=== PATIENT | male | born 1950 | race Caucasian/White ===

== ENCOUNTER 2022-02-09 13:13 | Emergency (ER) | payer MEDICARE, OTHER ==
[~2022-02-09] VITALS: Ht 157.5 cm; Wt 65.8 kg
[2022-02-09] MEDS ORDERED: LEVE1000 PO ×2 (13:26→15:50)
--- NOTE | 2022-02-09 13:29 | NUR ---
ADDENDUM: Intravenous End Time Documentation: Normal saline 1 liter (IV-WO) : start time: 1329 pm ; end time: 1429 pm : IV site:RAC PIV # 20 Port #1 Keppra 1 gram IVPB: start time: 1330 pm; end time: 1430 pm : IV site: RAC PIV # 20 Port # 2
[2022-02-09] MEDS ORDERED: IV NS 0.9% 1,000 ML BAG IV ONE (13:30)
[2022-02-09] MEDS ORDERED: LEVETIRACETAM (500MG) 500 MG in IV NS 0.9% 100 ML IV ONE (13:30)
[2022-02-09 13:44] LABS: BASOPHILS # (AUTO) 0.1 K/uL (0.0-0.2); BASOPHILS % (AUTO) 1.4 % (0.0-2.0); EOSINOPHILS % (AUTO) 4.2 % (0.0-6.0); HEMATOCRIT 37 % (39-51); LYMPHOCYTES # (AUTO) 1.4 K/uL (0.8-4.8); LYMPHOCYTES % (AUTO) 23.5 % (20.0-44.0); MEAN CORPUSCULAR HGB CONC 33 g/dl (31.0-36.0); MEAN CORPUSCULAR VOLUME 95 fL (80-96); MONOCYTES # (AUTO) 0.8 K/uL (0.1-1.30); MONOCYTES % (AUTO) 12.7 % (2.0-12.0); NEUTROPHILS # (AUTO) 3.5 K/uL (1.8-8.9); NEUTROPHILS % (AUTO) 58.2 % (43.0-81.0); PLATELET COUNT (AUTO) 318 K/uL (150-450); RED BLOOD CELL COUNT(AUTO) 3.85 MIL/uL (4.5-6.0); WHITE BLOOD COUNT (AUTO) 6.1 K/uL (4.3-11.0)
[2022-02-09 14:01] LABS: ALANINE AMINOTRANSFERASE 42 U/L (12-78); ALBUMIN 3.4 g/dL (3.4-5.0); ALCOHOL, BLOOD < 3 mg/dL (0-0); ALKALINE PHOSPHATASE 107 U/L (46-116); ASPARTATE AMINOTRANSFERASE 19 U/L (15-37); BILIRUBIN,DIRECT 0.1 mg/dL (0.0-0.2); BILIRUBIN,TOTAL 0.3 mg/dL (0.2-1.0); CALCIUM, SERUM 8.8 mg/dL (8.5-10.1); CARBON DIOXIDE 30 mmol/L (21-32); CHLORIDE 100 mmol/L (98-107); CREATININE 0.8 mg/dL (0.6-1.3); GLUCOSE 101 mg/dL (74-106); POTASSIUM 3.9 mmol/L (3.5-5.1); SODIUM SERUM 135 mmol/L (136-145); TOTAL PROTEIN, SERUM 7.2 g/dL (6.4-8.2); UREA NITROGEN, BLOOD 17 mg/dL (7-18)
--- NOTE | 2022-02-09 14:40 | NUR ---
IV STARTED AT 1330 PM AND ENDED AT 1430 PM
--- NOTE | 2022-02-09 15:17 | NUR ---
DOMINGO FROM [facility] FOR SEIZURE
--- NOTE | 2022-02-09 15:18 | NUR ---
IV R AC INTACT PATENT FLUSHING, NS AND KEPPRA GIVEN IV COMPLETED
--- NOTE | 2022-02-09 15:50 | NUR ---
[facility] [phone] [place] [facility] [id number]
--- NOTE | 2022-02-09 15:56 | NUR ---
[facility] CALLED FOR TRANSPORT ETA 20 MINS
[2022-02-09 16:50] VITALS: BP 118/72
[2022-02-23] MEDS ORDERED: LEVE100S PO (08:51)
[2022-02-23] MEDS ORDERED: LACO50TA2 PO (08:51)
[2022-02-23] MEDS ORDERED: LEVO500T90 PO (08:51)
== END 2022-02-09 16:52 | disposition home health service (06) ==
LOC: ER 14:54
DX: G40.909 Epilepsy, unspecified, not intractable, without status epilepticus (principal); Z91.14 Patient's other noncompliance with medication regimen
CPT/HCPCS: 99285; 96365; 93005; 71045; 70450; 85025; 80048; 80076; 36415; 82962; 80320; J7030; J1953; G0480

== ENCOUNTER 2022-02-12 10:56 | Emergency (ER) | payer MEDICARE, OTHER ==
[~2022-02-12] VITALS: Ht 147.3 cm; Wt 65.3 kg
[~2022-02-12 10:56] MED LIST: LEVE1000 PO
--- NOTE | 2022-02-12 10:59 | NUR ---
BIB RA 102 FROM [facility], HAS A SEIZURE EPISODE THAT LASTED 10 MINS, 2 DOSES OF 5 MG OF VERSED GIVEN BY CLINICAL NURSE LEADER. NO ORAL TRAUMA NOTED. ATTACHED TO MONITOR. SEIZURE PRECAUTION APPLIED. PT ARRIVED WITH IV ON R AC 20G BY PARAMEDICS. PT IS COMPLIANT WITH SEIZURE MEDICATION PER [facility] FACILTY. DR ALVARADO AT BEDSIDE, AWAITING AT BEDSIDE.
[2022-02-12 11:00] VITALS: BP 92/59
[2022-02-12] MEDS: IV NS 0.9% 1,000 ML BAG IV ONE (11:36)
[2022-02-12] MEDS: LEVETIRACETAM (500MG) 1,000 MG in IV NS 0.9% 100 ML IV SCH (11:38)
--- NOTE | 2022-02-12 12:51 | NUR ---
CALLED BOARDING FACILTY TO LET THEM KNOW THE PT JAX BE COMING BACK
--- NOTE | 2022-02-12 12:55 | NUR ---
[facility] CALLED, ETA 60 MIN PER SAMAN.
--- NOTE | 2022-02-12 13:49 | NUR ---
REPORT GIVEN TO [facility] EMT FOR ZHANE
[2022-02-23] MEDS ORDERED: LEVO500T90 PO (08:51)
[2022-02-23] MEDS ORDERED: LEVE100S PO (08:51)
[2022-02-23] MEDS ORDERED: LACO50TA2 PO (08:51)
--- NOTE | 2022-02-28 16:50 | NUR ---
ADDENDUM. IV KEPPRA STARTED ON 02/12/22 AT 1138 ON R AC 20G, KEPPRA COMPLETED AT 1208. PT TOLERATED IV MEDICATION WELL.
== END 2022-02-12 13:52 | disposition home or self-care (01) ==
LOC: ER 10:58
DX: G40.909 Epilepsy, unspecified, not intractable, without status epilepticus (principal); I69.30 Unspecified sequelae of cerebral infarction; F19.10 Other psychoactive substance abuse, uncomplicated; Z86.61 Personal history of infections of the central nervous system
CPT/HCPCS: 99284; 96365; J7030 ×3; J1953

== ENCOUNTER 2022-02-13 11:02 | Inpatient (IN) | payer MEDICARE, OTHER ==
[~2022-02-13] VITALS: Ht 165.1 cm; Wt 61.7 kg
[2022-02-13] MEDS ORDERED: LEVETIRACETAM (500MG) 1,000 MG in IV NS 0.9% 100 ML IV SCH (11:30)
[2022-02-13] MEDS ORDERED: IV NS 0.9% 1,000 ML BAG IV ONE (11:30)
--- NOTE | 2022-02-13 11:41 | NUR ---
URINE COLLECTED AND SENT TO LAB
--- NOTE | 2022-02-13 11:43 | NUR ---
HAT FORMER AT BEDSIDE FOR BLOOD DRAW
[2022-02-13 11:57] LABS: BASOPHILS # (AUTO) 0.1 K/uL (0.0-0.2); BASOPHILS % (AUTO) 0.8 % (0.0-2.0); EOSINOPHILS % (AUTO) 1.3 % (0.0-6.0); HEMATOCRIT 39 % (39-51); HEMOGLOBIN 12.8 g/dL (13.5-17.5); LYMPHOCYTES # (AUTO) 0.7 K/uL (0.8-4.8); LYMPHOCYTES % (AUTO) 7.8 % (20.0-44.0); MEAN CORPUSCULAR HGB CONC 33 g/dl (31.0-36.0); MEAN CORPUSCULAR VOLUME 95 fL (80-96); MONOCYTES # (AUTO) 0.8 K/uL (0.1-1.30); MONOCYTES % (AUTO) 9.8 % (2.0-12.0); NEUTROPHILS # (AUTO) 6.8 K/uL (1.8-8.9); NEUTROPHILS % (AUTO) 80.3 % (43.0-81.0); PLATELET COUNT (AUTO) 287 K/uL (150-450); RED BLOOD CELL COUNT(AUTO) 4.12 MIL/uL (4.5-6.0); WHITE BLOOD COUNT (AUTO) 8.4 K/uL (4.3-11.0)
[2022-02-13 12:04] LABS: CALCIUM, SERUM 8.5 mg/dL (8.5-10.1); CARBON DIOXIDE 29 mmol/L (21-32); CHLORIDE 103 mmol/L (98-107); CREATININE 0.7 mg/dL (0.6-1.3); GLUCOSE 106 mg/dL (74-106); POTASSIUM 3.9 mmol/L (3.5-5.1); SODIUM SERUM 136 mmol/L (136-145); UREA NITROGEN, BLOOD 9 mg/dL (7-18)
[2022-02-13 12:10] LABS: ALANINE AMINOTRANSFERASE 35 U/L (12-78); ALBUMIN 3.4 g/dL (3.4-5.0); ALCOHOL, BLOOD < 3 mg/dL (0-0); ALKALINE PHOSPHATASE 120 U/L (46-116); ASPARTATE AMINOTRANSFERASE 21 U/L (15-37); BILIRUBIN,DIRECT 0.1 mg/dL (0.0-0.2); BILIRUBIN,TOTAL 0.4 mg/dL (0.2-1.0); TOTAL PROTEIN, SERUM 7.2 g/dL (6.4-8.2)
--- NOTE | 2022-02-13 15:25 | NUR ---
CALLED [facility] FOR BLS AMBULANCE ETA 90 MINUTES
--- NOTE | 2022-02-13 18:16 | NUR ---
EMT AT BEDSIDE TO PICKUP PT
[2022-02-13] MEDS ORDERED: IV NS 0.9% 1,000 ML IV ONE (19:00)
--- NOTE | 2022-02-13 19:13 | NUR ---
LUCÍA QIU 102 from [facility] "Witnessed seizure- full tonic/clonic given 10MG VERSED BY EMS AESTHETICIAN AND SEIZURE RESOLVED. PT CURRENTLY AWAKE AND ALERT IN NO ACUTE DISTRESS BREATHING UNLABORED. V/S WNL.
--- NOTE | 2022-02-13 20:25 | NUR ---
[facility] CALLED FOR BLS GOING BACK TO [facility] PER RENU TOLBERT 90 MIN
[2022-02-13] MEDS ORDERED: ACETAMINOPHEN ES 500 MG TABLET PO ONE (20:30)
[2022-02-13] MEDS ORDERED: ACETAMINOPHEN ES 500 MG TABLET ONE (20:30)
--- NOTE | 2022-02-13 21:57 | NUR ---
jenniffer collected and sent to lab
[2022-02-13] MEDS ORDERED: Z GUARD REMEDY 4 OZ OINT TP PRN (23:00)
[2022-02-13] MEDS ORDERED: MAG HYDROX/AL HYDROX/SIMETH 30 ML UDC PO PRN (23:00)
[2022-02-13] MEDS ORDERED: ZOLPIDEM TARTRATE 5 MG TABLET PO PRN (23:00)
[2022-02-13] MEDS ORDERED: ONDANSETRON HCL/PF 4 MG/2 ML VIAL IVP PRN (23:00)
[2022-02-13] MEDS ORDERED: MAGNESIUM HYDROXIDE 30 ML UDC PO PRN (23:00)
--- NOTE | 2022-02-14 02:25 | NUR ---
REPORT GIVEN TO LIZZIE
--- NOTE | 2022-02-14 02:39 | NUR ---
PT TRANSPORTED TO ROOM 114 ON CARDIAC PER ACLS
--- NOTE | 2022-02-14 02:47 | NUR ---
HEAD FIELD HOCKEY COACH OPENING NOTE RECEIVED PATIENT VIA HARINIRBETINA FROM ED. PATIENT A/OX3, SLIGHTLY OUT OF IT. ON 2L O2 VIA NC, TOLERATING WELL WITH SATURATION 99%. TELE MONITOR READING SR 93, IV ACCESS ON LAC #20G FROM EMT, ANOTHER IV PLACED LFA #20, BOTH INTACT AND PATENT, S/L. SKIN IN INTACT WITH SACRAL REDNESS, EYE LEFT SIDE. PICTURES IN THE CHART. ALL SAFETY MEASURES IN PLACE PER POLICY, WILL CONTINUE TO MONITOR THROUGHOUT SHIFT. Addendum: 02/14/22 at 0428 by LIZZIE OLIVA RN BOTH IV ON R SIDE NOT LEFT.
[2022-02-14 02:50] VITALS: BP 95/72
[2022-02-14 04:00] VITALS: BP 104/64
[2022-02-14] MEDS: IV NS 0.9% 1,000 ML IV PRN ×2 (04:36→19:57)
--- NOTE | 2022-02-14 06:47 | NUR ---
GUARDIAN AD LITEM CLOSING NOTE PATIENT A/OX3, SLIGHTLY OUT OF IT. ON 2L O2 VIA NC, TOLERATING WELL WITH SATURATION 99%. TELE MONITOR READING SR 91, IV ACCESS ON RAC #20G AND RFA #20, BOTH INTACT AND PATENT, RUNNING NS @75ML/HR. VSS. ALL DUE MEDS GIVEN. ALL SAFETY MEASURES IN PLACE. BED IN LOWEST POSITION AND LOCKED, SIDE RAILS UP X3. PLACE CALL LIGHT WITHIN REACH. WILL ENDORSE TO MORNING
[2022-02-14 07:02] LABS: BASOPHILS % (AUTO) 0.1 % (0.0-2.0); HEMATOCRIT 31 % (39-51); HEMOGLOBIN 10.4 g/dL (13.5-17.5); LYMPHOCYTES # (AUTO) 0.9 K/uL (0.8-4.8); LYMPHOCYTES % (AUTO) 4.4 % (20.0-44.0); MEAN CORPUSCULAR HGB CONC 33 g/dl (31.0-36.0); MEAN CORPUSCULAR VOLUME 93 fL (80-96); MONOCYTES # (AUTO) 1.8 K/uL (0.1-1.30); MONOCYTES % (AUTO) 8.7 % (2.0-12.0); NEUTROPHILS # (AUTO) 17.9 K/uL (1.8-8.9); NEUTROPHILS % (AUTO) 86.8 % (43.0-81.0); PLATELET COUNT (AUTO) 211 K/uL (150-450); RED BLOOD CELL COUNT(AUTO) 3.36 MIL/uL (4.5-6.0); WHITE BLOOD COUNT (AUTO) 20.6 K/uL (4.3-11.0)
--- NOTE | 2022-02-14 07:14 | NUR ---
DIP FILLER OPENING NOTE PATIENT IS IN BED A/OX3, ON 2L O2 VIA NC, TOLERATING WELL WITH SATURATION 99%. TELE MONITOR READING SR 87, IV ACCESS ON LAC #20G FROM EMT, ANOTHER IV PLACED LFA #20, BOTH INTACT AND PATENT NS RUNNING AT 75 ML/HR , SKIN IN INTACT WITH SACRAL REDNESS, LEFT EYE CALIXTO S/P FALL PER PATIENT STATEMENT ALL SAFETY MEASURES IN PLACE PER POLICY, WILL CONTINUE TO MONITOR THROUGHOUT THE SHIFT.
[2022-02-14 08:00] VITALS: BP 107/67
[2022-02-14] MEDS: ASPIRIN 81 MG TAB.CHEW PO SCH (08:04)
[2022-02-14] MEDS: LEVETIRACETAM (250 MG) 250 MG TABLET PO SCH ×2 (08:05→20:19)
[2022-02-14 08:19] LABS: CALCIUM, SERUM 8.4 mg/dL (8.5-10.1); CREATININE 0.9 mg/dL (0.6-1.3); MAGNESIUM 1.5 mg/dL (1.8-2.4); PHOSPHORUS 4.1 mg/dL (2.5-4.9); POTASSIUM 3.8 mmol/L (3.5-5.1)
[2022-02-14] MEDS ORDERED: LEVETIRACETAM (250 MG) 250 MG TABLET PO SCH (09:00)
[2022-02-14] MEDS: Magnesium 1GM/D5W 100ML PREMIX 100 ML IV SCH ×2 (09:11→10:32)
[2022-02-14] MEDS: ACETAMINOPHEN 325 MG TABLET PO PRN ×2 (09:17→19:59)
[2022-02-14] MEDS: LORAZEPAM INJ 2 MG/ML VIAL IV PRN ×2 (09:25→18:23)
[2022-02-14 12:00] VITALS: BP 94/70
[2022-02-14 12:23] LABS: BILIRUBIN,URINE NEGATIVE (NEGATIVE); COLOR,URINE BROWN (YELLOW); LEUKOCYTE ESTERASE ,URINE TRACE (NEGATIVE); NITRITE, URINE POSITIVE (NEGATIVE); PROTEIN,URINE >=300 mg/dl (NEGATIVE); UGLUCOSE 100 MG/DL mg/dL (NEGATIVE)
[2022-02-14 12:30] LABS: BACTERIA,URINE Many /HPF (None Seen); RBC,URINE TOO NUMEROUS TO COUN /HPF (0-2); SQUAMOUS EPITHELIAL CELL,UR Rare /HPF (None Seen)
[2022-02-14 17:57] VITALS: BP 103/60
--- NOTE | 2022-02-14 18:23 | NUR ---
UNIFIED COMMUNICATIONS ENGINEER NOTES NOTIFIED BARI DEJESUS NP ABOUT PATIENT HAD SVT WITH HR 162 FOR 3 MINUTES. THEN BACK TO 131.
--- NOTE | 2022-02-14 18:48 | NUR ---
NEUROLOGICAL SURGEON CLOSING NOTE PATIENT IS IN BED A/OX3, ON 2L O2 VIA NC, TOLERATING WELL WITH SATURATION 99%. TELE MONITOR READING SR 105 , IV ACCESS ON LAC #22 G , NS RUNNING AT 75 ML/HR , PATIENT HAS TWO SEIZURES EPISODES TODAY DOCTOR GLO Jovel IN INTACT WITH SACRAL REDNESS, LEFT EYE CALIXTO S/P FALL PER PATIENT STATEMENT ALL SAFETY MEASURES IN PLACE PER POLICY, WILL CONTINUE TO MONITOR THROUGHOUT THE SHIFT. Addendum: 02/14/22 at 1851 by LUCHO MONDRAGON RN DR ERIS SALAZAR WAS NOTIFIED , ORDEREDEEG FOR TOMORROW
--- NOTE | 2022-02-14 19:30 | NUR ---
MOLD PRESSER OPENING NOTE PATIENT IS IN BED, AWAKE, A/OX3, ABLE TO MAKE NEEDS KNOWN. CURRENTLY ON 2L O2 VIA NC, TOLERATING WELL WITH SATURATION AT 99%. TELE MONITOR READS ST WITH HR>100. NO S/SX OF ACUTE RESPI DISTRESS NOTED AT THIS TIME. NO SOB, NO PAIN. IV ACCESS ON LFA #20G, INTACT AND PATENT, RUNNING NS AT 75 ML/HR. LEFT EYE BRUISE NOTED, S/P FALL PER PATIENT STATEMENT. ALL SAFETY MEASURES IN PLACE PER POLICY: BED LOCKED IN LOW POSITION, BED ALARM ON, SR UP X2, CALL LIGHT WITHIN REACH. WILL CONTINUE TO MONITOR THROUGHOUT THE SHIFT.
[2022-02-14 20:00] VITALS: BP 138/85
--- NOTE | 2022-02-14 20:00 | NUR ---
RN NOTE RELAYED INFO TO SKILLED HELPER DOCTOR, SANJAY SPAIN, REGARDING PT'S SVT EPISODE BETWEEN 18:33-18:36 TODAY. EKG RESULT WAS SENT TO HER WELL. CURRENT HR 124, BP 134/78. SHE MADE ONE TIME ORDER OF METOPROLOL 5 MG IV X1. WILL FOLLOW THROUGH.
[2022-02-14] MEDS ORDERED: METOPROLOL TARTRATE INJ 5 MG/5 ML AMPUL IVP ONE (20:30)
[2022-02-14] MEDS: ZOSYN IVPB 3.375 G in IV D5W 50ml IV SCH (23:56)
[2022-02-15] VITALS: BP 127/82
[2022-02-15 04:00] VITALS: BP 125/82
[2022-02-15] MEDS: ZOSYN IVPB 3.375 G in IV D5W 50ml IV SCH ×4 (05:06→23:19)
--- NOTE | 2022-02-15 06:25 | NUR ---
RN CLOSING NOTE PT REMAINED STABLE T/O THE NIGHT. CURRENTLY SR ON TELE MONITOR, HR IN THE 80s. ALL VS WNL. DUE MEDS GIVEN. NEEDS ATTENDED TO. TURNED AND REPOSITIONED. WILL ENDORSE TO AM SHIFT NURSE FOR ZHANE.
[2022-02-15 06:40] LABS: BASOPHILS % (AUTO) 0.2 % (0.0-2.0); EOSINOPHILS % (AUTO) 0.4 % (0.0-6.0); HEMATOCRIT 30 % (39-51); HEMOGLOBIN 10.2 g/dL (13.5-17.5); LYMPHOCYTES # (AUTO) 0.8 K/uL (0.8-4.8); LYMPHOCYTES % (AUTO) 5.8 % (20.0-44.0); MEAN CORPUSCULAR HGB CONC 34 g/dl (31.0-36.0); MEAN CORPUSCULAR VOLUME 93 fL (80-96); MONOCYTES # (AUTO) 1.4 K/uL (0.1-1.30); MONOCYTES % (AUTO) 9.4 % (2.0-12.0); NEUTROPHILS # (AUTO) 12.1 K/uL (1.8-8.9); NEUTROPHILS % (AUTO) 84.2 % (43.0-81.0); PLATELET COUNT (AUTO) 163 K/uL (150-450); RED BLOOD CELL COUNT(AUTO) 3.26 MIL/uL (4.5-6.0); WHITE BLOOD COUNT (AUTO) 14.4 K/uL (4.3-11.0)
[2022-02-15 06:42] LABS: CALCIUM, SERUM 8.5 mg/dL (8.5-10.1); CARBON DIOXIDE 27 mmol/L (21-32); CHLORIDE 106 mmol/L (98-107); CREATININE 0.7 mg/dL (0.6-1.3); GLUCOSE 112 mg/dL (74-106); MAGNESIUM 1.8 mg/dL (1.8-2.4); PHOSPHORUS 2.2 mg/dL (2.5-4.9); POTASSIUM 3.2 mmol/L (3.5-5.1); SODIUM SERUM 140 mmol/L (136-145); UREA NITROGEN, BLOOD 15 mg/dL (7-18)
--- NOTE | 2022-02-15 07:47 | NUR ---
RN OPEN NOTE PATIENT IS IN BED A/OX3, ON 2L O2 VIA NC, TOLERATING WELL WITH SATURATION 99%. TELE MONITOR READING SR 85, IV ACCESS LEFT FOREARM 22 G INTACT AND PATENT NS RUNNING AT 75 ML/HR , SKIN IN INTACT WITH SACRAL REDNESS, LEFT EYE CALIXTO S/P FALL PER PATIENT STATEMENT ALL SAFETY MEASURES IN PLACE PER POLICY, WILL CONTINUE TO MONITOR THROUGHOUT THE SHIFT.
[2022-02-15 08:00] VITALS: BP 129/72
[2022-02-15] MEDS: ASPIRIN 81 MG TAB.CHEW PO SCH (08:39)
[2022-02-15] MEDS: LEVETIRACETAM (250 MG) 250 MG TABLET PO SCH ×2 (08:39→20:20)
--- NOTE | 2022-02-15 10:30 | NUR ---
RN NOTE DR GRANT , NEUROLOGIST , WAS AT THE BED SIDE , ASKED WHEN SON WILL BE VISITING PATIENT TO CALL HIM [phone]
[2022-02-15] MEDS: LORAZEPAM INJ 2 MG/ML VIAL IV PRN ×2 (11:54→19:48)
[2022-02-15 12:00] VITALS: BP 137/81
[2022-02-15] MEDS: IV NS 0.9% 1,000 ML IV PRN (12:04)
[2022-02-15] MEDS ORDERED: K PHOS NEUTRAL 250 MG TABLET PO ONE (13:00)
[2022-02-15] MEDS ORDERED: POTASSIUM CHLORIDE 20 MEQ TAB.PRT.SR PO SCH ×2 (13:00)
[2022-02-15] MEDS ORDERED: LACOSAMIDE 200 MG in IV NS 0.9% 100 ML IV ONE (14:00)
[2022-02-15 17:08] VITALS: BP 143/76
--- NOTE | 2022-02-15 18:48 | NUR ---
RN CLOSE NOTE PATIENT IS IN BED A/OX3, ON 2L O2 VIA NC, TOLERATING WELL WITH SATURATION 99%. TELE MONITOR READING SR 85, IV ACCESS LEFT FOREARM 22 G INTACT AND PATENT NS RUNNING AT 75 ML/HR , SKIN IN INTACT WITH SACRAL REDNESS, LEFT EYE CALIXTO S/P FALL PER PATIENT STATEMENT ALL SAFETY MEASURES IN PLACE PER POLICY, WILL ENDORSE CORE JAVA SOFTWARE ENGINEER NURSE TO CONTINUE TO FALLOW POC.
--- NOTE | 2022-02-15 19:30 | NUR ---
APPLIANCE TESTER OPENING NOTE RECEIVED REPORT FROM QUAN YEPEZ FOR ZHANE. PATIENT IN BED, AWAKE, A/OX3, ABLE TO MAKE NEEDS KNOWN. CURRENTLY ON 2L O2 VIA NC, TOLERATING WELL WITH SATURATION AT 95%. TELE MONITOR READS SR WITH HR IN THE 80s. NO S/SX OF ACUTE RESPI DISTRESS NOTED AT THIS TIME. NO SOB, NO PAIN. IV ACCESS ON LFA #20G, INTACT AND PATENT, RUNNING NS AT 100 ML/HR. LEFT EYE BRUISE NOTED, S/P FALL PER PATIENT STATEMENT. ALL SAFETY MEASURES IN PLACE PER POLICY: BED LOCKED IN LOW POSITION, BED ALARM ON, SR UP X2, CALL LIGHT WITHIN REACH. WILL CONTINUE TO MONITOR THROUGHOUT THE SHIFT.
[2022-02-15 20:00] VITALS: BP 140/84
[2022-02-15] MEDS: LACOSAMIDE 100 MG in IV NS 0.9% 50 ML IV SCH (20:20)
--- NOTE | 2022-02-15 21:20 | NUR ---
RN NOTE YANETH CATHETER INSERTED.
[2022-02-16] VITALS: BP 133/81
[2022-02-16 04:00] VITALS: BP 130/67
[2022-02-16] MEDS: LORAZEPAM INJ 2 MG/ML VIAL IV PRN ×3 (04:07→19:38)
--- NOTE | 2022-02-16 04:40 | NUR ---
RN NOTE RECEIVED LAB REPORT FOR PT'S BLOOD CULTURE: GRAM NEGATIVE RODS DETECTED.
[2022-02-16] MEDS: ZOSYN IVPB 3.375 G in IV D5W 50ml IV SCH (06:23)
--- NOTE | 2022-02-16 06:26 | NUR ---
RN CLOSING NOTE PT REMAINED STABLE WITH NO SIGNIFICANT CHANGES T/O THE NIGHT. PT IS CURRENTLY SR WITH HR IN THE 80s. PT DENIES ANY PAIN. BREATHING IS EVEN AND UNLABORED. HAD 2 EPISODES OF MILD SEIZURE THE WHOLE NIGHT. GAVE ATIVAN ORDERED. MAINTAINED PT'S SAFETY. VS STABLE. WILL ENDORSE TO AM SHIFT NURSE FOR ZHANE.
[2022-02-16 06:56] LABS: BASOPHILS # (AUTO) 0.1 K/uL (0.0-0.2); BASOPHILS % (AUTO) 0.5 % (0.0-2.0); EOSINOPHILS % (AUTO) 0.9 % (0.0-6.0); HEMATOCRIT 30 % (39-51); HEMOGLOBIN 10.3 g/dL (13.5-17.5); LYMPHOCYTES # (AUTO) 1.1 K/uL (0.8-4.8); LYMPHOCYTES % (AUTO) 8.5 % (20.0-44.0); MEAN CORPUSCULAR HGB CONC 34 g/dl (31.0-36.0); MEAN CORPUSCULAR VOLUME 93 fL (80-96); MONOCYTES # (AUTO) 1.4 K/uL (0.1-1.30); MONOCYTES % (AUTO) 10.9 % (2.0-12.0); NEUTROPHILS # (AUTO) 10.1 K/uL (1.8-8.9); NEUTROPHILS % (AUTO) 79.2 % (43.0-81.0); PLATELET COUNT (AUTO) 169 K/uL (150-450); RED BLOOD CELL COUNT(AUTO) 3.28 MIL/uL (4.5-6.0); WHITE BLOOD COUNT (AUTO) 12.8 K/uL (4.3-11.0)
[2022-02-16 07:24] LABS: CALCIUM, SERUM 8.7 mg/dL (8.5-10.1); CREATININE 0.7 mg/dL (0.6-1.3); MAGNESIUM 1.7 mg/dL (1.8-2.4); PHOSPHORUS 2.9 mg/dL (2.5-4.9); POTASSIUM 3.6 mmol/L (3.5-5.1)
--- NOTE | 2022-02-16 07:34 | NUR ---
RN OPENING NOTE PATIENT IN BED ON 2 LITERS OXYGEN VIA NASAL CANULA, OXYGEN SATURATION AT 100%. ON PLUMBING AND HEATING MECHANIC READING SINUS RHYTHM WITH HEART RATE IN THE 80s. IV ACCESS ON LEFT FOREARM [address] GAUGE[address] SAFETY MEASURES IN PLACE. BED RAILS PADDED TO PREVENT INJURY DURING SEIZURES. WILL CONTINUE PLAN OF CARE AND ANTICIPATE NEEDS.
[2022-02-16 08:00] VITALS: BP 124/72
[2022-02-16] MEDS: LEVETIRACETAM (250 MG) 250 MG TABLET PO SCH ×2 (08:52→21:04)
[2022-02-16] MEDS: ASPIRIN 81 MG TAB.CHEW PO SCH (08:52)
[2022-02-16] MEDS: LACOSAMIDE 100 MG in IV NS 0.9% 50 ML IV SCH (08:57)
[2022-02-16] MEDS: Magnesium 1GM/D5W 100ML PREMIX 100 ML IV SCH ×2 (11:35→12:36)
[2022-02-16 12:00] VITALS: BP 159/94
[2022-02-16] MEDS ORDERED: PIPERACILLIN /TAZOBACTAM 3.375 G in IV D5W 100 ML IV SCH (13:00)
[2022-02-16] MEDS: CEFEPIME 2 GM in IV D5W 100 ML IV SCH ×2 (13:59→21:10)
[2022-02-16 16:00] VITALS: BP 140/85
[2022-02-16] MEDS: IV NS 0.9% 1,000 ML IV PRN (18:10)
--- NOTE | 2022-02-16 18:31 | NUR ---
RN CLOSING NOTE PATIENT IN BED ON 2 LITERS OXYGEN VIA NASAL CANULA, OXYGEN SATURATION AT 100%. ON APPLIANCE TESTER READING SINUS RHYTHM. IV ACCESS ON LEFT FOREARM [address] GAUGE. SAFETY MEASURES IN PLACE. BED RAILS PADDED TO PREVENT INJURY DURING SEIZURES. ALL DUE MEDS GIVEN. WILL ENDORSE TO NIGHTSHIFT RN FOR CONTINUATION OF CARE.
--- NOTE | 2022-02-16 19:15 | NUR ---
CAR PRE COOLER OPENING NOTE RECEIVED REPORT FROM QUAN KENNEY FOR [facility]. PATIENT IN BED, SLEEPING, CURRENTLY ON 2 LITERS OF OXYGEN VIA NASAL CANNULA, TOLERATING WELL. OXYGEN SATURATION AT 100%. ON INCOME AUDITOR READING SINUS RHYTHM WITH HEART RATE <100. NO S/SX OF ACUTE RESPI DISTRESS NOTED AT THIS TIME. IV ACCESS ON LEFT FOREARM 20 GAUGE, PATENT AND INTACT, RUNNING NS @ 100 CC/HR. ALL SAFETY MEASURES IN PLACE: BED LOCKED IN LOW POSITION. BED ALARM ON. BED RAILS PADDED TO PREVENT INJURY DURING SEIZURES. CALL LIGHT WITHIN REACH. WILL CONTINUE PLAN OF CARE AND ANTICIPATE NEEDS.
--- NOTE | 2022-02-16 19:47 | NUR ---
RN NOTE PT SHOWING FACIAL GRIMACE AFTER HAVING MILD EPISODE OF SEIZURE. MAINTAINED PT'S SAFETY. GAVE ATIVAN PRN ORDERED. WILL CONTINUE TO MONITOR.
[2022-02-16 20:00] VITALS: BP 151/94
[2022-02-16] MEDS: LACOSAMIDE ORAL SOLN 50 MG/5 ML UDC PO SCH (21:05)
[2022-02-17] VITALS: BP 117/74
[2022-02-17] MEDS: LORAZEPAM INJ 2 MG/ML VIAL IV PRN ×3 (00:06→19:59)
[2022-02-17] MEDS: ACETAMINOPHEN 325 MG TABLET PO PRN ×2 (02:07→05:26)
[2022-02-17 04:00] VITALS: BP 151/74
[2022-02-17] MEDS: CEFEPIME 2 GM in IV D5W 100 ML IV SCH ×3 (05:08→22:19)
[2022-02-17] MEDS: IV NS 0.9% 1,000 ML IV PRN ×2 (05:16→19:18)
--- NOTE | 2022-02-17 06:31 | NUR ---
RN CLOSING NOTE PT HAD A COUPLE OF MILD SEIZURE EPISODES WHICH LASTED FOR A FEW MINUTES. ATIVAN PRN GIVEN ORDERED. MAINTAINED PT'S SAFETY. ALL DUE MEDS GIVENS. NEEDS ATTENDED TO. TURNED AND REPOSITIONED. PT CURRENTLY SR ON TELE MONITOR WITH O2 SAT AT 100%. ALL SAFETY MEASURES IN PLACE. WILL ENDORSE TO AM SHIFT NURSE FOR ZHANE.
--- NOTE | 2022-02-17 07:00 | NUR ---
AIR ANALYSIS ENGINEERING TECHNICIAN OPENING NOTE: RECEIVED PATIENT IN BED, SLEEPING, CURRENTLY ON 2 LITERS OF OXYGEN VIA NASAL CANNULA, TOLERATING WELL. OXYGEN SATURATION AT 100%. ON GREASE AND TALLOW PUMPER READING SINUS RHYTHM WITH HEART RATE <100. NO S/SX OF ACUTE RESPI DISTRESS NOTED AT THIS TIME. IV ACCESS ON LEFT FOREARM 20 GAUGE, PATENT AND INTACT, RUNNING NS @ 100 CC/HR. ALL SAFETY MEASURES IN PLACE: BED LOCKED IN LOW POSITION. BED ALARM ON. BED RAILS PADDED TO PREVENT INJURY DURING SEIZURES. CALL LIGHT WITHIN REACH. WILL CONTINUE PLAN OF CARE AND ANTICIPATE NEEDS.
[2022-02-17 07:33] LABS: BASOPHILS # (AUTO) 0.1 K/uL (0.0-0.2); BASOPHILS % (AUTO) 1.2 % (0.0-2.0); EOSINOPHILS % (AUTO) 4.5 % (0.0-6.0); HEMATOCRIT 31 % (39-51); HEMOGLOBIN 10.3 g/dL (13.5-17.5); LYMPHOCYTES # (AUTO) 1.1 K/uL (0.8-4.8); LYMPHOCYTES % (AUTO) 18.8 % (20.0-44.0); MEAN CORPUSCULAR HGB CONC 34 g/dl (31.0-36.0); MEAN CORPUSCULAR VOLUME 93 fL (80-96); MONOCYTES # (AUTO) 1.1 K/uL (0.1-1.30); MONOCYTES % (AUTO) 19.4 % (2.0-12.0); NEUTROPHILS # (AUTO) 3.2 K/uL (1.8-8.9); NEUTROPHILS % (AUTO) 56.1 % (43.0-81.0); PLATELET COUNT (AUTO) 188 K/uL (150-450); RED BLOOD CELL COUNT(AUTO) 3.29 MIL/uL (4.5-6.0); WHITE BLOOD COUNT (AUTO) 5.7 K/uL (4.3-11.0)
[2022-02-17 07:53] LABS: CALCIUM, SERUM 8.7 mg/dL (8.5-10.1); CARBON DIOXIDE 28 mmol/L (21-32); CHLORIDE 104 mmol/L (98-107); CREATININE 0.7 mg/dL (0.6-1.3); GLUCOSE 89 mg/dL (74-106); MAGNESIUM 1.9 mg/dL (1.8-2.4); PHOSPHORUS 3.4 mg/dL (2.5-4.9); POTASSIUM 3.4 mmol/L (3.5-5.1); SODIUM SERUM 137 mmol/L (136-145); UREA NITROGEN, BLOOD 10 mg/dL (7-18)
[2022-02-17 08:00] VITALS: BP 111/71
[2022-02-17] MEDS: ASPIRIN 81 MG TAB.CHEW PO SCH (08:15)
[2022-02-17] MEDS: LACOSAMIDE ORAL SOLN 50 MG/5 ML UDC PO SCH ×2 (08:15→20:15)
[2022-02-17] MEDS: LEVETIRACETAM (250 MG) 250 MG TABLET PO SCH ×2 (08:16→20:15)
[2022-02-17 09:02] LABS: BASOPHILS % (MANUAL) 1 % (0.0-2.0); EOSINOPHILS % (MANUAL) 3 % (0-4); LYMPHOCYTES % (MANUAL) 21 % (16-48); MONOCYTES % (MANUAL) 12 % (0-11.0); NEUTROPHILS % (MANUAL) 63 (42-76)
[2022-02-17] MEDS ORDERED: POTASSIUM CHLORIDE 20 MEQ TAB.PRT.SR PO SCH (10:00)
--- NOTE | 2022-02-17 11:17 | NUR ---
rn notes" noted pt with seizure ativan IV given, maintained seizure precaution
[2022-02-17 12:00] VITALS: BP 142/93
[2022-02-17 16:00] VITALS: BP 144/88
--- NOTE | 2022-02-17 19:28 | NUR ---
television cameraman CLOSING NOTE PT HAD SEIZURE EPISODES WHICH LASTED FOR A FEW MINUTES. ATIVAN PRN GIVEN ORDERED. MAINTAINED PT'S SAFETY.ALL DUE MEDS GIVENS. NEEDS ATTENDED TO. TURNED AND REPOSITIONED. PT CURRENTLY SR ON TELE MONITOR WITH O2 SAT AT 100%. ALL SAFETY MEASURES IN PLACE. WILL ENDORSE TO AM SHIFT NURSE FOR ZHANE.noted pt is shaking when asked how do you feel pt says i have seizure, will monitor
--- NOTE | 2022-02-17 19:30 | NUR ---
PT RECEIVED AWAKE IN BED, ON 2 LITERS OF OXYGEN VIA NASAL CANNULA, TOLERATING WELL. OXYGEN SATURATION AT 99%. ON ANTHROPOMETRIST READING SINUS RHYTHM WITH HEART RATE <100. NO S/SX OF ACUTE RESPI DISTRESS NOTED AT THIS TIME. IV ACCESS ON LEFT FOREARM 20 GAUGE, PATENT AND INTACT, INFUSING NS @ 100 CC/HR. ALL SAFETY MEASURES IN PLACE: BED LOCKED IN LOW POSITION. BED ALARM ON. BED RAILS PADDED TO PREVENT INJURY DURING SEIZURES. CALL LIGHT WITHIN REACH. WILL CONTINUE PLAN OF CARE AND ANTICIPATE NEEDS.
[2022-02-17 20:00] VITALS: BP 143/99
[2022-02-18] VITALS: BP 157/98
[2022-02-18 04:00] VITALS: BP 128/85
[2022-02-18] MEDS: IV NS 0.9% 1,000 ML IV PRN ×2 (06:30→18:12)
[2022-02-18] MEDS: CEFEPIME 2 GM in IV D5W 100 ML IV SCH ×3 (06:36→21:45)
--- NOTE | 2022-02-18 07:36 | NUR ---
PT AWAKE IN BED, ON 2 LITERS OF OXYGEN VIA NASAL CANNULA, TOLERATING WELL. OXYGEN SATURATION AT 99%. ON TOP COATER READING SINUS RHYTHM WITH HEART RATE <100. NO S/SX OF ACUTE RESPI DISTRESS NOTED AT THIS TIME. IV ACCESS ON LEFT FOREARM 20 GAUGE, PATENT AND INTACT, INFUSING NS @ 100 CC/HR. ALL SAFETY MEASURES MAINTAINED, BED LOCKED IN LOW POSITION. BED ALARM ON. BED RAILS PADDED TO PREVENT INJURY DURING SEIZURES. CALL LIGHT WITHIN REACH. WILL ENDORSE TO NEXT NURSE ON DUTY FOR CONTINUITY OF CARE.
--- NOTE | 2022-02-18 07:47 | NUR ---
telesales team leader note patient in bed alert oriented, c\o is wet diaper changed, on 2l nc no sob noted at this time, on tele monitor st hr 117 at this time, lt fa hl intact and flushed well , on ivf as ordered seizure precaution in place , safety measure provided, call light within reach will cont to monitor closely
[2022-02-18 08:00] VITALS: BP 160/94
--- NOTE | 2022-02-18 08:30 | NUR ---
NATURAL RESOURCES TECHNICIAN NOTE SEEN BY DR MARTINEZ NEUROLOGIST NOTIFIED THAT PATENT HAS TREMORS HANDS ALERT ORIENTED, NO NEW ORDER GIVEN AT THIS TIME WILL MONITOR
[2022-02-18] MEDS: ASPIRIN 81 MG TAB.CHEW PO SCH (08:40)
[2022-02-18] MEDS: LACOSAMIDE ORAL SOLN 50 MG/5 ML UDC PO SCH ×2 (08:40→21:45)
[2022-02-18] MEDS: LEVETIRACETAM (250 MG) 250 MG TABLET PO SCH ×2 (08:40→21:44)
--- NOTE | 2022-02-18 11:34 | NUR ---
STUDIO OPERATIONS ENGINEER IN CHARGE NOTE ROUNDS MADE, ALL NEEDS ATTENDED, ON IVF ORDERED NOT IN DISTRESS
[2022-02-18 12:00] VITALS: BP 149/94
--- NOTE | 2022-02-18 12:44 | NUR ---
DRIER AND EVAPORATOR OPERATOR NOTE SPACE SYSTEMS OPERATIONS CRAFTSMAN AT BEDSIDE,FED PATIENT, ATE 75% OF LUNCH , ALL NEEDS ATTENDED ,WILL MONITOR
[2022-02-18] MEDS: LORAZEPAM INJ 2 MG/ML VIAL IV PRN (15:25)
--- NOTE | 2022-02-18 15:25 | NUR ---
telecommunications field engineer note noted t severe tremors both hands and legs Ativan ivp given as ordered bp 153/87 saturation 98% will monitor
[2022-02-18 16:00] VITALS: BP 153/82
[2022-02-18] MEDS: ENSURE ENLIVE 237 ML LIQUID (VANILLA) PO SCH (16:25)
[2022-02-18] MEDS: ACETAMINOPHEN 325 MG TABLET PO PRN (16:28)
--- NOTE | 2022-02-18 16:46 | NUR ---
teletypist not Tylenol fot general pain given in body will monitor
--- NOTE | 2022-02-18 18:59 | NUR ---
BOBTAILER NOTE PATIENT IN BED , NOW RESTING COMFORTABLY REFUSING TO HAVE DINNER AT THIS TIME, ON TELE MONITOR SR- ST 99-117 HR , LT FA HL INTACT , ON IVF ORDERED, ON 2L OF O2 NO SOB NOTED AT THIS TIME, BED IN LOWEST AND LOCKED POSITION, SEIZURE PRECAUTION IMPLEMENTED,CALL LIGHT WITHIN REACH ,WILL CONT TO MONITOR
--- NOTE | 2022-02-18 19:30 | NUR ---
RN OPEN NOTE: ALERT AND ORIENTED TO NAME AND TIME, OCCITAN SPEAKING. REORIENTED TO PLACE AND SITUATION. HOB ELEVATED 30 DEGREE ANGLE. ON 02 2LPM NC. IV ON LEFT FOREARM G20 PATENT AND WITH NO S/S OF COMPLICATIONS. IVF OF NS 100ML/HR. ON TELE MONITOR WITH A READING OF SINUS RHYTHM WITH OCCASIONAL PVC'S. REPOSITIONED WITH PILLOWS, BILATERAL HALF SIDE RAILS UP X2. BED IN LOW POSITION, LOCKED, BED ALARM ON. CALL LIGHT IN REACH. NO COMPLAINTS OF PAIN OR DISCOMFORT.
[2022-02-18 20:00] VITALS: BP 131/81
[2022-02-19] VITALS (17 sets, daily range): BP systolic 112–167; BP diastolic 67–107
[2022-02-19] MEDS: CEFEPIME 2 GM in IV D5W 100 ML IV SCH (05:44)
[2022-02-19] MEDS: IV NS 0.9% 1,000 ML IV PRN ×2 (05:44→13:00)
--- NOTE | 2022-02-19 06:40 | NUR ---
RN CLOSING NOTE: ALERT AND ORIENTED TO NAME AND TIME, MAURITIAN SPEAKING. REORIENTED TO PLACE AND SITUATION. HOB ELEVATED 30 DEGREE ANGLE. ON 02 2LPM NC. IV ON LEFT FOREARM G20 PATENT AND WITH NO S/S OF COMPLICATIONS. IVF OF NS 100ML/HR. ON TELE MONITOR WITH A READING OF SINUS RHYTHM WITH OCCASIONAL PVC'S. REPOSITIONED WITH PILLOWS, KEPT CLEAN AND DRY NO A/R TO ABX. BILATERAL HALF SIDE RAILS UP X2. BED IN LOW POSITION, LOCKED, BED ALARM ON. CALL LIGHT IN REACH. NO COMPLAINTS OF PAIN OR DISCOMFORT.
[2022-02-19 07:50] LABS: BASOPHILS # (AUTO) 0.1 K/uL (0.0-0.2); BASOPHILS % (AUTO) 1.3 % (0.0-2.0); EOSINOPHILS % (AUTO) 3.6 % (0.0-6.0); HEMATOCRIT 34 % (39-51); HEMOGLOBIN 11.4 g/dL (13.5-17.5); LYMPHOCYTES # (AUTO) 1.2 K/uL (0.8-4.8); LYMPHOCYTES % (AUTO) 17.4 % (20.0-44.0); MEAN CORPUSCULAR HGB CONC 34 g/dl (31.0-36.0); MEAN CORPUSCULAR VOLUME 92 fL (80-96); MONOCYTES # (AUTO) 1.2 K/uL (0.1-1.30); MONOCYTES % (AUTO) 17.8 % (2.0-12.0); NEUTROPHILS % (AUTO) 59.9 % (43.0-81.0); PLATELET COUNT (AUTO) 251 K/uL (150-450); RED BLOOD CELL COUNT(AUTO) 3.63 MIL/uL (4.5-6.0); WHITE BLOOD COUNT (AUTO) 6.6 K/uL (4.3-11.0)
[2022-02-19 08:02] LABS: CALCIUM, SERUM 9.2 mg/dL (8.5-10.1); CARBON DIOXIDE 29 mmol/L (21-32); CHLORIDE 102 mmol/L (98-107); CREATININE 0.6 mg/dL (0.6-1.3); GLUCOSE 109 mg/dL (74-106); POTASSIUM 3.5 mmol/L (3.5-5.1); SODIUM SERUM 140 mmol/L (136-145); UREA NITROGEN, BLOOD 10 mg/dL (7-18)
[2022-02-19] MEDS: ASPIRIN 81 MG TAB.CHEW PO SCH ×2 (08:33→08:38)
[2022-02-19] MEDS: LEVETIRACETAM (250 MG) 250 MG TABLET PO SCH (08:39)
[2022-02-19] MEDS: LACOSAMIDE ORAL SOLN 50 MG/5 ML UDC PO SCH (08:41)
[2022-02-19] MEDS: ENSURE ENLIVE 237 ML LIQUID (VANILLA) PO SCH ×2 (08:47→17:49)
[2022-02-19] MEDS: LORAZEPAM INJ 2 MG/ML VIAL IV PRN ×2 (12:05→12:13)
--- NOTE | 2022-02-19 12:30 | NUR ---
Transferred to ICU #253. Focal tremors/ Seizure to RUE has subsided. Pt opens eyes to tactile stimuli. Vitals stable. No Respiratory Distress noted. Pt able to protect airway. O2 Sat 100% on 2L NC. Cont to Seizure precautions. Cont to monitor. Cont with plan of care.
--- NOTE | 2022-02-19 12:30 | NUR ---
RN NOTE PT BEGAN SEIZING, NOTIFIED DR GONZALEZ. PER TRANSFER PT TO ICU. GAVE REPORT TO [facility].
[2022-02-19] MEDS: CEFTRIAXONE 1 G in IV D5W 50 ML IV SCH (12:55)
--- NOTE | 2022-02-19 20:00 | NUR ---
RN NOTE PT IN BED, WITNESSED TREMORS FOR FEW MINUTES ON RUE ANG RLE, PT IS ALERT AND RESPONDING APPROPRIATELY WHILE HAVING THE TREMORS, FOLLOWING COMMANDS. NO DISTRESS NOTED. PT DENIES ANY PAIN OR SOB, ON 2L O2 VIA NC. ALL SAFETY PRECAUTION IN PLACE PER PROTOCOL. WILL CONTINUE TO MONITOR.
[2022-02-19] MEDS: KEPPRA 1500 MG in IV NS 100 ML IV SCH (20:54)
[2022-02-19] MEDS ORDERED: LACOSAMIDE 100 MG in IV NS 0.9% 50 ML IV SCH (21:00)
[2022-02-19 21:05] LABS: BAND % (MANUAL) 1 % (0.0-5.0); EOSINOPHILS % (MANUAL) 2 % (0-4); LYMPHOCYTES % (MANUAL) 19 % (16-48); MONOCYTES % (MANUAL) 12 % (0-11.0); NEUTROPHILS % (MANUAL) 65 (42-76); REACTIVE LYMPHOCYTES 1 % (0-0)
[2022-02-19] MEDS: LACOSAMIDE 150 MG in IV NS 0.9% 50 ML IV SCH (21:41)
[2022-02-20] VITALS (32 sets, daily range): BP systolic 94–174; BP diastolic 55–130
[2022-02-20 04:28] LABS: BASOPHILS # (AUTO) 0.1 K/uL (0.0-0.2); BASOPHILS % (AUTO) 1.1 % (0.0-2.0); EOSINOPHILS % (AUTO) 5.4 % (0.0-6.0); HEMATOCRIT 32 % (39-51); HEMOGLOBIN 10.8 g/dL (13.5-17.5); LYMPHOCYTES % (AUTO) 18.6 % (20.0-44.0); MEAN CORPUSCULAR HGB CONC 34 g/dl (31.0-36.0); MEAN CORPUSCULAR VOLUME 92 fL (80-96); MONOCYTES % (AUTO) 17.7 % (2.0-12.0); NEUTROPHILS # (AUTO) 3.1 K/uL (1.8-8.9); NEUTROPHILS % (AUTO) 57.2 % (43.0-81.0); PLATELET COUNT (AUTO) 264 K/uL (150-450); RED BLOOD CELL COUNT(AUTO) 3.42 MIL/uL (4.5-6.0); WHITE BLOOD COUNT (AUTO) 5.5 K/uL (4.3-11.0)
[2022-02-20 04:49] LABS: CALCIUM, SERUM 8.8 mg/dL (8.5-10.1); CARBON DIOXIDE 30 mmol/L (21-32); CHLORIDE 106 mmol/L (98-107); CREATININE 0.5 mg/dL (0.6-1.3); GLUCOSE 107 mg/dL (74-106); PHOSPHORUS 3.4 mg/dL (2.5-4.9); POTASSIUM 3.7 mmol/L (3.5-5.1); SODIUM SERUM 141 mmol/L (136-145); UREA NITROGEN, BLOOD 12 mg/dL (7-18)
[2022-02-20] MEDS: IV NS 0.9% 1,000 ML IV PRN (05:13)
--- NOTE | 2022-02-20 06:48 | NUR ---
RN NOTE PT SLEEPING, AROUSES EASILY. WEAN OFF O2. WAS SATURATING 100% ON 2L. PT NOW TOLERATING ROOM AIR O2 SAT AT 96%. NOT IN ANY DISTRESS. DENIES PAIN OR SOB. NO MORE TREMORS/SEIZURE NOTED AFTER EPISODE LAST NIGHT. PLACED CONDOM CATH WITH ADEQUATE AMOUNT OF URINE OUTPUT. CONTINUE WITH NS AT 100ML/HR, INFUSING WELL. SEIZURE PRECAUTION MAINTAINED. WILL ENDORSE TO NEXT SHIFT NURSE FOR ZHANE.
--- NOTE | 2022-02-20 08:00 | NUR ---
RN NOTES SEEN PATIENT IN THE BED , ROOM AIR FIO2-100%, NO ACUTE RESPIRATORY DISTRESS, A/A/OX3, PATIENT WAS COMPLAINING OF HEADACHE. INFUSING NS @100ML/HR, ASSIST EATING BREAKFAST TOLERATED 100%. PATIENT HAS MEG WEAKNESS. CANDOM CATH NO OUTPUT AT THIS TIME. CALL LIGHT WITHIN TO REACH. ASSIST TURN AND REPOSTION Q 2 HR. WILL FOLLOW UP.ALSO PATIENT WAS NOTED HAS DRY EYES.
[2022-02-20] MEDS: ASPIRIN 81 MG TAB.CHEW PO SCH (08:07)
[2022-02-20] MEDS: ACETAMINOPHEN 325 MG TABLET PO PRN (08:07)
--- NOTE | 2022-02-20 08:07 | NUR ---
RN NOTES ADMINISTERED TYLENOL 650 MG/ML PO PRN FOR HEADACHE PER PATIENT REQUEST. SEEN PATIENT VIA HOSPITALIST, Dr GONZALEZ, AND GET VERBAL ORDER BP PRN MEDICATION, ALSO GET ORDER TO CHANGE DOSAGE OF NS IV 100ML TO THE 70ML/HR ORDER TAKEN AND CARRIED OUT.
[2022-02-20] MEDS: ENSURE ENLIVE 237 ML LIQUID (VANILLA) PO SCH ×2 (08:10→16:44)
[2022-02-20] MEDS: hydrALAZINE HCL IV 20 MG VIAL IV PRN (08:26)
--- NOTE | 2022-02-20 08:26 | NUR ---
RN NOTES ADMINISTERED HYDRALAZINE 10MG/ML IV PUSH FOR BP 164/113, P-117.
[2022-02-20] MEDS ORDERED: POLYVINYL ALCOHOL 15 ML BOTTLE EACHEYE PRN (09:00)
[2022-02-20] MEDS: KEPPRA 1500 MG in IV NS 100 ML IV SCH ×2 (09:03→20:48)
[2022-02-20] MEDS: LORAZEPAM INJ 2 MG/ML VIAL IV PRN ×2 (09:09→20:35)
--- NOTE | 2022-02-20 09:09 | NUR ---
RN NOTES ADMINISTERED ATIVAN 2 MG/ML IV PUSH. PATIENT WAS HAVING JERKY MOVEMENT ON RIGHT SIDE, AND NOTED I AM IN THE PAIN. BP 131/82, P-119. PATIENT AWAKE, AND ABLE TO VERBALIZE SELF. NEURO ASSESSMENT DONE, PATIENT ABLE TO HOLD UP LOWER AND UPPER EXTREMITIES. WILL FOLLOW UP.
[2022-02-20] MEDS: LACOSAMIDE 150 MG in IV NS 0.9% 50 ML IV SCH ×2 (09:29→21:27)
[2022-02-20 11:18] LABS: BAND % (MANUAL) 10 % (0.0-5.0); EOSINOPHILS % (MANUAL) 4 % (0-4); LYMPHOCYTES % (MANUAL) 18 % (16-48); METAMYELOCYTES % 1 % (0-0); MONOCYTES % (MANUAL) 18 % (0-11.0); NEUTROPHILS % (MANUAL) 49 (42-76)
[2022-02-20] MEDS: CEFTRIAXONE 1 G in IV D5W 50 ML IV SCH (13:25)
--- NOTE | 2022-02-20 16:45 | NUR ---
rn notes patient stable will transfer to the tele unit room 103 .
--- NOTE | 2022-02-20 18:30 | NUR ---
RN NOTES PATIENT ON ROOM 103 , STABLE NO SEIZURE NOTED, ROOM AIR, NO SOB, REFUSED PAIN. PATIENT A/O X3.TOLERATED DINNER 100%, NEEDS ATTENDED AND ANTICIPATED, PM CARE DONECALL LIGHT WITHIN TO REACH. BED ALARM ON. ENDORSED ONCOMING NURSE ZHANE.
--- NOTE | 2022-02-20 20:00 | NUR ---
OUTBOARD MOTOR MECHANIC OPENING NOTE PT RECEIVED IN BED AWAKE A/OX3 AND RESPONSIVE. ON R/A ON TELE SR ON THE MONITOR NO SOB NO DISTRESS NOTED V/S STABLE AFEBRILE ON LFA g22 INTACT AND PATENT ALL DUE MEDS GIVEN ORDERED .NO ASE NOTED ALL SAFETY PRECAUTION IN PLACE PER PROTOCOL. WILL CONTINUE TO MONITOR.
--- NOTE | 2022-02-20 20:30 | NUR ---
CINDER BLOCK MAKER NOTES PTS NOTED TREMORS FOR FEW MINUTES ON RUE AND RLE, PT IS ALERT AND RESPONDING APPROPRIATELY WHILE HAVING THE TREMORS, FOLLOWING COMMANDS. NO DISTRESS NOTED. PT DENIES ANY PAIN OR SOB, ON R/A SATING 95% ATIVAN 2 MG IVP GIVEN ORDERED TREMORS SLOWLY STOP. ALL SAFETY PRECAUTION IN PLACE PER PROTOCOL. WILL CONTINUE TO MONITOR.
--- NOTE | 2022-02-20 21:30 | NUR ---
NURSING SUPPORT WORKER NOTES SPOKE TO SHELBY REDDING WITH TEL#[phone] . UPDATED WITH PATIENT CONDITION , WANTS TO TALK TO DR CRAWFORD .WILL ENDORSE TO AM SHIFT.
[2022-02-21] VITALS: BP 128/81
[2022-02-21 04:00] VITALS: BP 144/91
--- NOTE | 2022-02-21 06:49 | NUR ---
OYSTERMAN NOTES PTS REMAIN IN BED AWAKE NO SEIZURE ACTIVITY NOTED REMAIN ON R/A NO SOB NO DISTRESS NOTED ALL NEEDS ATTENDED TOO , WILL ENDORSE TO RN DAY SHIFT FOR CONTINUITY OF CARE.
--- NOTE | 2022-02-21 07:13 | NUR ---
RN OPEN NOTE PT RECEIVED IN BED AWAKE A/OX3 AND RESPONSIVE. ON R/A ON TELE SR ON THE MONITOR NO SOB NO DISTRESS NOTED V/S STABLE HAS IV ACCESS ON LFA g22 INTACT AND PATENT ALL SAFETY PRECAUTION IN PLACE PER PROTOCOL. BED IS AT LOWEST POSITION , CALL LIGHT WITHIN REACH .WILL CONTINUE TO MONITOR AND FALLOW POC
[2022-02-21] MEDS: ACETAMINOPHEN 325 MG TABLET PO PRN (07:32)
[2022-02-21] MEDS: ASPIRIN 81 MG TAB.CHEW PO SCH (08:06)
[2022-02-21] MEDS: ENSURE ENLIVE 237 ML LIQUID (VANILLA) PO SCH ×2 (08:07→16:24)
[2022-02-21 08:51] LABS: BASOPHILS # (AUTO) 0.1 K/uL (0.0-0.2); BASOPHILS % (AUTO) 1.1 % (0.0-2.0); EOSINOPHILS % (AUTO) 5.5 % (0.0-6.0); HEMATOCRIT 34 % (39-51); HEMOGLOBIN 11.2 g/dL (13.5-17.5); LYMPHOCYTES # (AUTO) 1.3 K/uL (0.8-4.8); LYMPHOCYTES % (AUTO) 21.7 % (20.0-44.0); MEAN CORPUSCULAR HGB CONC 33 g/dl (31.0-36.0); MEAN CORPUSCULAR VOLUME 93 fL (80-96); MONOCYTES # (AUTO) 0.7 K/uL (0.1-1.30); MONOCYTES % (AUTO) 11.1 % (2.0-12.0); NEUTROPHILS # (AUTO) 3.7 K/uL (1.8-8.9); NEUTROPHILS % (AUTO) 60.6 % (43.0-81.0); PLATELET COUNT (AUTO) 345 K/uL (150-450)
[2022-02-21 09:08] LABS: CALCIUM, SERUM 9.1 mg/dL (8.5-10.1); CREATININE 0.6 mg/dL (0.6-1.3); POTASSIUM 3.8 mmol/L (3.5-5.1)
[2022-02-21] MEDS: LACOSAMIDE 150 MG in IV NS 0.9% 50 ML IV SCH ×2 (09:15→20:51)
[2022-02-21] MEDS: KEPPRA 1500 MG in IV NS 100 ML IV SCH ×2 (09:15→21:44)
[2022-02-21 09:59] VITALS: BP 153/94
[2022-02-21] MEDS: CEFTRIAXONE 1 G in IV D5W 50 ML IV SCH (12:06)
[2022-02-21 12:42] VITALS: BP 165/97
[2022-02-21 16:00] VITALS: BP 162/89
[2022-02-21] MEDS: LORAZEPAM INJ 2 MG/ML VIAL IV PRN (17:10)
--- NOTE | 2022-02-21 18:34 | NUR ---
RN CLOSING NOTE PT IN BED AWAKE A/OX3 AND RESPONSIVE. ON R/A ON TELE SR ON THE MONITOR NO SOB NO DISTRESS NOTED V/S STABLE HAS IV ACCESS ON RFA g22 INTACT AND PATENT ALL SAFETY PRECAUTION IN PLACE , ALL MEDICATIONS ADMINISTERED , ALL NEEDS ARE MET PER PROTOCOL. BED IS AT LOWEST POSITION , CALL LIGHT WITHIN REACH .WILL ENDORSE COMMUTATOR TESTER NURSE TO MONITOR AND FALLOW POC
[2022-02-21 20:00] VITALS: BP 148/60
--- NOTE | 2022-02-21 20:00 | NUR ---
FINANCIAL CENTER MANAGER OPENING NOTE PT RECEIVED IN BED AWAKE A/OX3 AND RESPONSIVE. ON R/A ON TELE SR ON THE MONITOR NO SOB NO DISTRESS NOTED V/S STABLE AFEBRILE , NO SEIZURE ACTIVITY NOTED AT THIS TIME . ON L HAND g22 INTACT AND PATENT ALL DUE MEDS GIVEN ORDERED .NO ASE NOTED ALL SAFETY PRECAUTION IN PLACE PER PROTOCOL. WILL CONTINUE TO MONITOR PTS.
[2022-02-22] VITALS: BP 138/62
[2022-02-22 04:00] VITALS: BP 146/70
--- NOTE | 2022-02-22 05:57 | NUR ---
PUMP OPERATOR NOTES PTS REMAIN IN BED AWAKE NO SEIZURE ACTIVITY NOTED REMAIN ON R/A NO SOB NO DISTRESS NOTED ALL NEEDS ATTENDED TOO , WILL ENDORSE TO RN DAY SHIFT FOR CONTINUITY OF CARE.
[2022-02-22 07:05] LABS: CALCIUM, SERUM 9.2 mg/dL (8.5-10.1); CREATININE 0.6 mg/dL (0.6-1.3); POTASSIUM 3.6 mmol/L (3.5-5.1)
[2022-02-22 07:11] LABS: BASOPHILS # (AUTO) 0.1 K/uL (0.0-0.2); EOSINOPHILS % (AUTO) 3.5 % (0.0-6.0); HEMATOCRIT 35 % (39-51); HEMOGLOBIN 11.7 g/dL (13.5-17.5); LYMPHOCYTES # (AUTO) 1.7 K/uL (0.8-4.8); LYMPHOCYTES % (AUTO) 22.8 % (20.0-44.0); MEAN CORPUSCULAR HGB CONC 34 g/dl (31.0-36.0); MEAN CORPUSCULAR VOLUME 92 fL (80-96); MONOCYTES # (AUTO) 0.6 K/uL (0.1-1.30); MONOCYTES % (AUTO) 8.6 % (2.0-12.0); NEUTROPHILS # (AUTO) 4.7 K/uL (1.8-8.9); NEUTROPHILS % (AUTO) 64.1 % (43.0-81.0); PLATELET COUNT (AUTO) 417 K/uL (150-450); RED BLOOD CELL COUNT(AUTO) 3.76 MIL/uL (4.5-6.0); WHITE BLOOD COUNT (AUTO) 7.3 K/uL (4.3-11.0)
--- NOTE | 2022-02-22 07:21 | NUR ---
RN OPEN NOTE PT RECEIVED IN BED AWAKE A/OX3 RESPONSIVE. ON R/A ON TELE SR ON THE MONITOR NO SOB NO DISTRESS NOTED HAS IV ACCESS ON ON RFA g22 INTACT AND PATENT ALL SAFETY PRECAUTION IN PLACE PER PROTOCOL. WILL CONTINUE TO MONITOR.
[2022-02-22 08:00] VITALS: BP 156/76
[2022-02-22] MEDS: LACOSAMIDE 150 MG in IV NS 0.9% 50 ML IV SCH ×2 (08:00→21:00)
[2022-02-22] MEDS: ACETAMINOPHEN 325 MG TABLET PO PRN (08:28)
[2022-02-22] MEDS: ASPIRIN 81 MG TAB.CHEW PO SCH (08:28)
[2022-02-22] MEDS: ENSURE ENLIVE 237 ML LIQUID (VANILLA) PO SCH ×2 (08:42→16:09)
[2022-02-22] MEDS: KEPPRA 1500 MG in IV NS 100 ML IV SCH ×2 (10:13→21:00)
[2022-02-22] MEDS ORDERED: MORPHINE SULFATE INJ 2 MG/ML DISP.SYRIN IV PRN (11:00)
[2022-02-22 12:02] VITALS: BP 149/89
[2022-02-22] MEDS: CEFTRIAXONE 1 G in IV D5W 50 ML IV SCH (12:06)
[2022-02-22 16:15] VITALS: BP 144/76
--- NOTE | 2022-02-22 18:22 | NUR ---
RN CLOSING NOTE PT IN BED AWAKE A/OX3 AND RESPONSIVE. ON Room air ON TELE SR ON THE MONITOR NO SOB NO DISTRESS NOTED , BREATHING NON LABORED , V/S STABLE HAS IV ACCESS ON LFA g22 INTACT AND PATENT ALL SAFETY PRECAUTION IN PLACE , ALL MEDICATIONS ADMINISTERED , ALL NEEDS ARE MET PER PROTOCOL. BED IS AT LOWEST POSITION , CALL LIGHT WITHIN REACH .WILL ENDORSE MAINTENANCE MECHANIC TECHNICIAN NURSE TO MONITOR AND FALLOW POC
[2022-02-22 20:00] VITALS: BP 140/89
--- NOTE | 2022-02-22 20:00 | NUR ---
TWISTER FRAME TENDER OPENING NOTE PT RECEIVED IN BED AWAKE A/OX3 AND RESPONSIVE. ON R/A ON TELE SR ON THE MONITOR NO SOB NO DISTRESS NOTED V/S STABLE AFEBRILE ON LFA g22 INTACT AND PATENT ALL DUE MEDS GIVEN ORDERED .NO ASE NOTED ALL SAFETY PRECAUTION IN PLACE PER PROTOCOL. WILL CONTINUE TO MONITOR. Addendum: 02/22/22 at 2138 by CAROL MAYNARD RN IV SITE ON L HAND G#22 NOT LFA
[2022-02-22] MEDS: LACOSAMIDE 50 MG TABLET PO SCH (20:37)
[2022-02-22] MEDS: LEVETIRACETAM SOL (5 ML) 100 MG/ML UDC PO SCH (20:37)
--- NOTE | 2022-02-22 21:14 | NUR ---
telegraph office manager notes keppra iv and vimpat iv was not administered d/t pts on oral keppra and oral vimpat, spoke to [facility] ok to dc iv vimpat and iv keppra.
[2022-02-23] VITALS: BP 124/88
[2022-02-23 04:00] VITALS: BP 145/87
[2022-02-23] MEDS: ACETAMINOPHEN 325 MG TABLET PO PRN (05:10)
[2022-02-23 06:01] LABS: BASOPHILS # (AUTO) 0.1 K/uL (0.0-0.2); EOSINOPHILS % (AUTO) 3.6 % (0.0-6.0); HEMATOCRIT 34 % (39-51); HEMOGLOBIN 11.6 g/dL (13.5-17.5); LYMPHOCYTES # (AUTO) 1.9 K/uL (0.8-4.8); LYMPHOCYTES % (AUTO) 24.6 % (20.0-44.0); MEAN CORPUSCULAR HGB CONC 34 g/dl (31.0-36.0); MEAN CORPUSCULAR VOLUME 92 fL (80-96); MONOCYTES # (AUTO) 0.7 K/uL (0.1-1.30); MONOCYTES % (AUTO) 8.9 % (2.0-12.0); NEUTROPHILS # (AUTO) 4.9 K/uL (1.8-8.9); NEUTROPHILS % (AUTO) 61.9 % (43.0-81.0); PLATELET COUNT (AUTO) 456 K/uL (150-450); RED BLOOD CELL COUNT(AUTO) 3.73 MIL/uL (4.5-6.0); WHITE BLOOD COUNT (AUTO) 7.9 K/uL (4.3-11.0)
--- NOTE | 2022-02-23 06:20 | NUR ---
EXCEL EXPERT NOTES PTS REMAIN IN BED AWAKE NO SEIZURE ACTIVITY NOTED REMAIN ON R/A NO SOB NO DISTRESS NOTED ALL NEEDS ATTENDED TOO , WILL ENDORSE TO RN DAY SHIFT FOR CONTINUITY OF CARE.
[2022-02-23 06:41] LABS: CALCIUM, SERUM 9.5 mg/dL (8.5-10.1); CREATININE 0.8 mg/dL (0.6-1.3); MAGNESIUM 2.1 mg/dL (1.8-2.4); PHOSPHORUS 4.1 mg/dL (2.5-4.9)
--- NOTE | 2022-02-23 07:41 | NUR ---
MORTGAGE BRANCH MANAGER NOTE PT RECEIVED IN BED , RESTING COMFORTABLY , ON TELE SR ON THE MONITOR SR HR 81,ON RA NO SOB NO DISTRESS NOTED ON LFA g22 INTACT AND PATENT ALL SAFETY PRECAUTION IN PLACE PER PROTOCOL. WILL CONTINUE TO MONITOR,ON SEIZURE PRECAUTION
[2022-02-23 08:00] VITALS: BP 145/85
[2022-02-23] MEDS ORDERED: LEVE100S PO (08:51)
[2022-02-23] MEDS ORDERED: LEVO500T90 PO (08:51)
[2022-02-23] MEDS ORDERED: LACO50TA2 PO (08:51)
[2022-02-23] MEDS: LACOSAMIDE 50 MG TABLET PO SCH ×2 (08:54→21:01)
[2022-02-23] MEDS: ASPIRIN 81 MG TAB.CHEW PO SCH (08:54)
[2022-02-23] MEDS: LEVETIRACETAM SOL (5 ML) 100 MG/ML UDC PO SCH ×2 (08:56→21:01)
[2022-02-23] MEDS: ENSURE ENLIVE 237 ML LIQUID (VANILLA) PO SCH ×2 (08:57→17:10)
--- NOTE | 2022-02-23 09:41 | NUR ---
SORTER UPHOLSTERY PARTS NOTE SEEN BY AGUILAR JULIO TO DISCHARGE WILL ASK WIND TURBINE MECHANICAL ENGINEER FOR FACILITY PLACEMENT
--- NOTE | 2022-02-23 10:30 | NUR ---
TREE TRIMMER HELPER NOTE SEEN BY PT ABLE TO SIT AT EDGE OF BED
[2022-02-23 12:00] VITALS: BP 132/82
[2022-02-23] MEDS: CEFTRIAXONE 1 G in IV D5W 50 ML IV SCH (12:22)
--- NOTE | 2022-02-23 12:27 | NUR ---
director telemetry note noted on tele monitor run v tach 3 sec, no c\o chest pain, bp 132/82 saturation 94% hr 91 ,dr francois notified no new order given at this time, per dr francois ok to discharge, case mathew still working on placement, will speak with family
--- NOTE | 2022-02-23 14:41 | NUR ---
senior telecommunications technician note spoke with shoe parts caser stated most likely will be discharge to snf if family agree, unable to reach family or [facility] where he come from per shoe parts caser statement, will f\u
[2022-02-23 16:00] VITALS: BP 138/87
--- NOTE | 2022-02-23 16:40 | NUR ---
SPECIAL EFFECTS PERSON NOTE RESTING COMFORTABLY NOT IN DISTRESS
--- NOTE | 2022-02-23 18:29 | NUR ---
TELE JACQUI NOTE PER ELECTORATE OFFICER UNABLE TO REACH FAMILY TO DISCUSES FOR PLACEMENT , PATIENT IN BED, ALERT , ORIENTED, ON RA, NO SOB NOTE AT THIS TIME,ON TELE MONITOR SR HR 90, ABLE TO FEED SELF WITH ASSISTANCE, RT FA AND LT HAND AND HL IN PLACE, AND INTACT, BED IN LOWEST AND LOCKED POSITION , CALL LIGHT WITHIN REACH , KEEP CLEAN DRY , WILL CONT TO MONITOR CLOSELY,
[2022-02-23 20:00] VITALS: BP 147/86
--- NOTE | 2022-02-23 22:57 | NUR ---
BALANCE STAFF STAKER OPENING NOTE PT RECEIVED IN BED, AWAKE, A&O X3, CALM, COOPERATIVE. PT ON RA WITH CURRENT O2SAT OF 96%; NO S/S OF RESP DISTRESS, NO SOB OR COUGH, NON-LABORED AND EQUAL BREATHING. PT ATTACHED TO EXTERNAL MONITOR, ST WITH HR OF 101. IV ACCESS ON RIGHT HAND 22G AND LFA 22G, INTACT AND PATENT, NO MEDS/FLUIDS INFUSING THROUGH IT. BED IN LOWEST POSITION, CALL LIGHT WITHIN REACH, SIDE RAILS UP X3 AND PADDED. WILL CONTINUE TO MONITOR THROUGHOUT THE NIGHT.
[2022-02-24] VITALS: BP 137/83
[2022-02-24 04:00] VITALS: BP 153/86
--- NOTE | 2022-02-24 06:41 | NUR ---
OFFICE MACHINE INSTALLER CLOSING NOTE PT REMAINS IN BED, AWAKE, SLEPT WELL THROUGHOUT THE NIGHT, A&O X3, CALM, COOPERATIVE. NO SEIZURES NOTED DURING THE NIGHT. CONTINUES TO BE ON RA WITH O2SAT RANGING FROM 94%-96%, NO S/S OF RESP DISTRESS, NO SOB OR COUGH, NON-LABORED AND EQUAL BREATHING. ATTACHED TO EXTERNAL MONITOR, SR WITH HR RANGING FROM 93-98. IV ACCESS ON RFA 22G AND LEFT HAND 22G, INTACT AND PATENT, FLUSHES EASILY WITH NO RESISTANCE; SALINE LOCK. ALL DUE MEDS ADMINISTERED DURING THE NIGHT. BED IN LOWEST POSITION, CALL LIGHT WITHIN REACH, SIDE RAILS UP X3. WILL ENDORSE TO DAYSHIFT NURSE TO CONTINUE CARE.
--- NOTE | 2022-02-24 07:09 | NUR ---
RN OPEN NOTE PT IN BED AWAKE A/OX3 AND RESPONSIVE. ON ROOM AIR ON TELE SR ON THE MONITOR NO SOB NO DISTRESS NOTED , BREATHING NON LABORED , V/S STABLE HAS IV ACCESS ON LFA g22 INTACT AND PATENT ALL SAFETY PRECAUTION IN PLACE .. BED IS AT LOWEST POSITION , CALL LIGHT WITHIN REACH .WILL ENDORSE CONTINUE TO MONITOR AND FALLOW POC
[2022-02-24 08:00] VITALS: BP 154/87
[2022-02-24] MEDS: ASPIRIN 81 MG TAB.CHEW PO SCH (09:09)
[2022-02-24] MEDS: LACOSAMIDE 50 MG TABLET PO SCH (09:09)
[2022-02-24] MEDS: LEVETIRACETAM SOL (5 ML) 100 MG/ML UDC PO SCH (09:09)
[2022-02-24] MEDS: ENSURE ENLIVE 237 ML LIQUID (VANILLA) PO SCH (09:36)
[2022-02-24 12:00] VITALS: BP 150/96
[2022-02-24] MEDS: CEFTRIAXONE 1 G in IV D5W 50 ML IV SCH (12:28)
--- NOTE | 2022-02-24 14:11 | NUR ---
order to discharge patient from [facility] received. patient is at stable condition , discharge instructions were provided verbally and in written to the EMT and to the web applications administrator of the [facility] facility . patient discharged from [facility] as of today
[2022-02-24 14:28] VITALS: BP 160/100
[2022-02-24] MEDS: hydrALAZINE HCL IV 20 MG VIAL IV PRN (14:28)
--- NOTE | 2022-02-24 14:57 | NUR ---
UPONE EMT ARRIVAL , PATIENT DEVELOPED BP 160 /100 , APRESOLINE 10 MG WAS ADMINISTERED IV , IN 10 MIN RECHECKED BP WAS 155/80 .PATIENTWA[address]ANSFRED TO THE [facility]
[2022-02-25] MEDS ORDERED: OXCA150T5 PO (10:21)
[2022-02-25] MEDS ORDERED: LEVE500T9 PO (10:21)
[2022-02-25] MEDS ORDERED: ASPI-1169 PO (10:21)
[2022-02-25] MEDS ORDERED: ACET-868 PO (10:21)
[2022-02-25] MEDS ORDERED: ATOR10TA PO (10:21)
[2022-02-25] MEDS ORDERED: IBUP-2715 PO (10:21)
[2022-02-25] MEDS ORDERED: CHOL100043 PO (10:21)
[2022-02-25] MEDS ORDERED: AMLO-213 PO (10:21)
[2022-02-25] MEDS ORDERED: CITA10TA9 PO (10:21)
== END 2022-02-24 14:45 | DRG 872 ==
LOC: ER 11:06 → TELE1 02-14 02:17 → ICU 02-19 12:22 → TELE1 02-20 17:51
PROVIDERS: ADMIT Nurse Practitioner Acute Care; ATTEND Internal Medicine
DX: A41.51 Sepsis due to Escherichia coli [E. coli] (principal); I69.354 Hemiplegia and hemiparesis following cerebral infarction affecting left non-dominant side; N39.0 Urinary tract infection, site not specified; G40.909 Epilepsy, unspecified, not intractable, without status epilepticus; F41.9 Anxiety disorder, unspecified; E66.9 Obesity, unspecified; E83.42 Hypomagnesemia; Z20.822 Contact with and (suspected) exposure to COVID-19; F29 Unspecified psychosis not due to a substance or known physiological condition; R07.89 Other chest pain
CPT/HCPCS: 36415; 71045-TC; 80048-TC; 80076-TC; 80177; 81001; 82962-TC; 83735-TC; 83880; 84100-TC; 84484-TC; 85025-TC; 87040-TC; 87081-TC; 87086-TC; 87186-TC; 93307-TC; 94799-TC; 95819-TC; 97110-TC; 97112-TC; 97530-TC; A4349; C9803; G0378; G0480; J0360; J0692; J0696; J1953; J2060; J2270; J2543; J3475; J3490; J7030; J7040; J7050; J7060

== ENCOUNTER 2022-02-25 00:38 | Emergency (ER) | payer MEDICARE, OTHER ==
[~2022-02-25] VITALS: Ht 154.9 cm; Wt 57.2 kg
[~2022-02-25 00:38] MED LIST changes: +LACO50TA2 PO; -LEVE1000 PO; +LEVE100S PO; +LEVO500T90 PO
--- NOTE | 2022-02-25 00:52 | NUR ---
BIBRA60 FROM [facility] FOR UPPER EXTREMITY TREMORS. PT STATES "IM HAVING A SEIZURE" WHILE MOVING UPPER EXTREMITIES CONTINOUSLY. PT AWAKE AND ALERT ANSWERS QUESTIONS APPROPRIATELY. PT PLACED ON MONITOR AND NOTED TACHYCARDIC. SEIZURE PRECAUTIONS IN PLACE.
--- NOTE | 2022-02-25 01:13 | NUR ---
ADMINISTERATOR OF FROY AT THE [facility], [place]: [phone]
[2022-02-25] MEDS ORDERED: IV NS 0.9% 1,000 ML IV ONE (02:00)
--- NOTE | 2022-02-25 02:09 | NUR ---
SEASONAL CLERK AT PT'S BEDSIDE
--- NOTE | 2022-02-25 02:16 | NUR ---
20G IV ESTABLISHED AT . BLOOD AND CULTURES COLLECTED AND SENT TO LAB.
[2022-02-25 02:29] LABS: BASOPHILS # (AUTO) 0.1 K/uL (0.0-0.2); BASOPHILS % (AUTO) 1.1 % (0.0-2.0); EOSINOPHILS % (AUTO) 1.9 % (0.0-6.0); HEMATOCRIT 36 % (39-51); HEMOGLOBIN 12.2 g/dL (13.5-17.5); LYMPHOCYTES # (AUTO) 1.4 K/uL (0.8-4.8); LYMPHOCYTES % (AUTO) 14.7 % (20.0-44.0); MEAN CORPUSCULAR HGB CONC 34 g/dl (31.0-36.0); MEAN CORPUSCULAR VOLUME 92 fL (80-96); MONOCYTES # (AUTO) 0.7 K/uL (0.1-1.30); MONOCYTES % (AUTO) 7.9 % (2.0-12.0); NEUTROPHILS % (AUTO) 74.4 % (43.0-81.0); PLATELET COUNT (AUTO) 576 K/uL (150-450); RED BLOOD CELL COUNT(AUTO) 3.86 MIL/uL (4.5-6.0); WHITE BLOOD COUNT (AUTO) 9.4 K/uL (4.3-11.0)
[2022-02-25 02:38] LABS: CALCIUM, SERUM 9.5 mg/dL (8.5-10.1); CREATININE 0.7 mg/dL (0.6-1.3); POTASSIUM 4.1 mmol/L (3.5-5.1)
--- NOTE | 2022-02-25 02:54 | NUR ---
URINE SENT TO LAB
[2022-02-25 04:58] LABS: BILIRUBIN,URINE NEGATIVE (NEGATIVE); COLOR,URINE YELLOW (YELLOW); LEUKOCYTE ESTERASE ,URINE NEGATIVE (NEGATIVE); NITRITE, URINE NEGATIVE (NEGATIVE); PROTEIN,URINE NEGATIVE (NEGATIVE); UGLUCOSE NEGATIVE (NEGATIVE); UROBILINOGEN,URINE 0.2 EU/dL (0.2)
--- NOTE | 2022-02-25 05:24 | NUR ---
CALLED FACILITY FOR REPORT. NO PICKUP
--- NOTE | 2022-02-25 06:05 | NUR ---
CALLED FACILITY FOR REPORT. NO PICKUP
--- NOTE | 2022-02-25 06:14 | NUR ---
DR GALLEGOS ON PHONE WITH FROY AT THE [facility], [place].
--- NOTE | 2022-02-25 07:20 | NUR ---
RECEVED PT REGINA GLASS pt asleepy no sob
[2022-02-25] MEDS ORDERED: ACET-868 PO (10:21)
[2022-02-25] MEDS ORDERED: ATOR10TA PO (10:21)
[2022-02-25] MEDS ORDERED: ASPI-1169 PO (10:21)
[2022-02-25] MEDS ORDERED: OXCA150T5 PO (10:21)
[2022-02-25] MEDS ORDERED: CHOL100043 PO (10:21)
[2022-02-25] MEDS ORDERED: CITA10TA9 PO (10:21)
[2022-02-25] MEDS ORDERED: LEVE500T9 PO (10:21)
[2022-02-25] MEDS ORDERED: IBUP-2715 PO (10:21)
[2022-02-25] MEDS ORDERED: AMLO-213 PO (10:21)
[2022-02-25] MEDS ORDERED: LEVETIRACETAM (250 MG) 250 MG TABLET PO ONE ×2 (10:47→11:00)
[2022-02-25] MEDS ORDERED: OXCARBAZEPINE 150 MG TABLET ONE (10:48)
[2022-02-25] MEDS ORDERED: OXCARBAZEPINE 150 MG TABLET PO ONE (11:00)
--- NOTE | 2022-02-25 11:35 | NUR ---
[address] [place], [id number]
--- NOTE | 2022-02-25 13:13 | NUR ---
02/25/22 1300 RECEIVED A CALL FROM RED FROM [facility] [phone] DR. JOHANSEN (PATIENT'S PCP) WANTS TO TRANSFER THE PATIENT FROM [facility] TO [facility]. [facility] IS REQUESTING FOR FACESHEET AND CLINICALS [phone]
--- NOTE | 2022-02-25 13:20 | NUR ---
covid swab done sent to lab
--- NOTE | 2022-02-25 15:45 | NUR ---
SPOKE TO SARAH FROM [facility], PATIENT IS FINANCIALLY CLEARED AND ACCEPTED BY DR. JOHANSEN. PENDING BED ASSIGNMENT. TO FOLLOW UP ON BED ASSIGNMENT PLS CALL. [phone]
--- NOTE | 2022-02-25 16:39 | NUR ---
JULIO FROM DR. JOHANSEN [phone] WILL CALL US BACK WITH UPDATE.
--- NOTE | 2022-02-25 18:04 | NUR ---
[facility] CALLED FOR TRANSPORT ETA 5 MINS.
[2022-02-25 19:14] VITALS: BP 150/86
== END 2022-02-25 19:15 | disposition short-term general hospital (02) ==
LOC: ER 00:40
DX: G40.909 Epilepsy, unspecified, not intractable, without status epilepticus (principal); Z86.73 Personal history of transient ischemic attack (TIA), and cerebral infarction without residual deficits; Z86.19 Personal history of other infectious and parasitic diseases; F19.10 Other psychoactive substance abuse, uncomplicated; Z79.899 Other long term (current) drug therapy; Z20.822 Contact with and (suspected) exposure to COVID-19
CPT/HCPCS: 99285; 96360; 87426; 85025; 80048; 87040 ×2; 83605; 36415; 80307; 81003; J7030; C9803

== ENCOUNTER 2022-06-04 10:39 | Inpatient (IN) | payer MEDICARE, OTHER ==
[~2022-06-04] VITALS: Ht 162.6 cm; Wt 82.1 kg
[~2022-06-04 10:39] MED LIST changes: +ACET-868 PO; +AMLO-213 PO; +ASPI-1169 PO; +ATOR10TA PO; +CHOL100043 PO; +CITA10TA9 PO; +IBUP-2715 PO; -LACO50TA2 PO; -LEVE100S PO; +LEVE500T9 PO; -LEVO500T90 PO; +OXCA150T5 PO
[2022-06-04] MEDS ORDERED: IV NS 0.9% 1,000 ML BAG IV ONE (11:00)
[2022-06-04] MEDS ORDERED: PIPERACILLIN /TAZOBACTAM 3.375 G in IV D5W 50 ML IV ONE (11:00)
[2022-06-04] MEDS ORDERED: VANCOMYCIN 1 GM in IV D5W 250 ML IV ONE (11:00)
[2022-06-04] MEDS ORDERED: AZITHROMYCIN 500 MG in IV D5W 250 ML IV ONE (11:00)
--- NOTE | 2022-06-04 11:00 | NUR ---
BIBRA39 FOR FEVER. RECTAL TEMP 102.3 ON ARRIVAL. PT CAME FROM [facility] [address] [place] [address]. PLACED IN BED, NOT RESPONDING TO VERBAL STIMULI, BREATHING EVEN AND UNLABORED SATURATING AT 96%RA.
[2022-06-04] MEDS ORDERED: ACETAMINOPHEN 650 MG/SUPP.RECT RC ONE ×2 (11:02→11:30)
--- NOTE | 2022-06-04 11:04 | NUR ---
MOVE SHEET SUBMITTED.
--- NOTE | 2022-06-04 11:09 | NUR ---
BLOOD DRAWN AND SNT TO LAB
[2022-06-04] MEDS ORDERED: HYDR-4209 PO (11:29)
[2022-06-04] MEDS ORDERED: ACET-868 PO (11:29)
[2022-06-04] MEDS ORDERED: OXCA150T5 PO (11:29)
[2022-06-04] MEDS ORDERED: LATA2.5D15 EACHEYE (11:29)
[2022-06-04] MEDS ORDERED: HYDR-3980 PO (11:29)
[2022-06-04] MEDS ORDERED: MULT-24 PO (11:29)
[2022-06-04] MEDS ORDERED: ASCO-352 PO (11:29)
[2022-06-04] MEDS ORDERED: CYCL5TAB PO (11:29)
[2022-06-04] MEDS ORDERED: PANT40TA49 PO (11:29)
[2022-06-04] MEDS ORDERED: DIVA500T54 PO (11:29)
[2022-06-04] MEDS ORDERED: LACO150T2 PO (11:29)
[2022-06-04] MEDS ORDERED: AMIN30LI2 PO (11:30)
[2022-06-04 11:31] LABS: BASOPHILS % (AUTO) 0.3 % (0.0-2.0); HEMATOCRIT 46 % (39-51); HEMOGLOBIN 14.6 g/dL (13.5-17.5); LYMPHOCYTES # (AUTO) 1.3 K/uL (0.8-4.8); LYMPHOCYTES % (AUTO) 11.7 % (20.0-44.0); MEAN CORPUSCULAR HGB CONC 32 g/dl (31.0-36.0); MEAN CORPUSCULAR VOLUME 95 fL (80-96); MONOCYTES # (AUTO) 1.2 K/uL (0.1-1.30); MONOCYTES % (AUTO) 10.5 % (2.0-12.0); NEUTROPHILS # (AUTO) 8.7 K/uL (1.8-8.9); NEUTROPHILS % (AUTO) 77.5 % (43.0-81.0); PLATELET COUNT (AUTO) 68 K/uL (150-450); RED BLOOD CELL COUNT(AUTO) 4.85 MIL/uL (4.5-6.0); WHITE BLOOD COUNT (AUTO) 11.2 K/uL (4.3-11.0)
--- NOTE | 2022-06-04 11:34 | NUR ---
COVID SWAB COLLECTED AND SENT TO LAB.
--- NOTE | 2022-06-04 11:58 | NUR ---
URNE SAMPLE SENT TO LAB
--- NOTE | 2022-06-04 12:12 | NUR ---
DR. DEEPA HARVEY [phone] NICOLE.
--- NOTE | 2022-06-04 12:26 | NUR ---
TROPONIN 141.8 LACTIC ACID 2.3 MD MADE AWARE
[2022-06-04 12:27] LABS: BILIRUBIN,URINE 1+ (NEGATIVE); COLOR,URINE DARK YELLOW (YELLOW); LEUKOCYTE ESTERASE ,URINE NEGATIVE (NEGATIVE); NITRITE, URINE NEGATIVE (NEGATIVE); PH,URINE 5.5 (5.0-8.0); PROTEIN,URINE 1+ mg/dl (NEGATIVE); UGLUCOSE NEGATIVE (NEGATIVE)
[2022-06-04 12:27] LABS: ALANINE AMINOTRANSFERASE 44 U/L (12-78); ALKALINE PHOSPHATASE 68 U/L (46-116); ASPARTATE AMINOTRANSFERASE 47 U/L (15-37); BILIRUBIN,DIRECT 0.3 mg/dL (0.0-0.2); BILIRUBIN,TOTAL 0.6 mg/dL (0.2-1.0); CALCIUM, SERUM 8.9 mg/dL (8.5-10.1); CARBON DIOXIDE 28 mmol/L (21-32); CHLORIDE 124 mmol/L (98-107); CREATININE 2.5 mg/dL (0.6-1.3); GLUCOSE 96 mg/dL (74-106); POTASSIUM 3.5 mmol/L (3.5-5.1); TOTAL PROTEIN, SERUM 8.1 g/dL (6.4-8.2); UREA NITROGEN, BLOOD 70 mg/dL (7-18)
[2022-06-04 12:29] LABS: BACTERIA,URINE Rare /HPF (None Seen); SQUAMOUS EPITHELIAL CELL,UR Many /HPF (None Seen); WBC,URINE 0-2 /HPF (0-3)
[2022-06-04 12:31] LABS: SODIUM SERUM 164 mmol/L (136-145)
--- NOTE | 2022-06-04 12:31 | NUR ---
SODIUM 164 MADE AWARE
--- NOTE | 2022-06-04 13:07 | NUR ---
GOT BED 116-2 ADMITTING INFORMED.
--- NOTE | 2022-06-04 13:15 | NUR ---
REPORT GIVEN TO BRONWYN RN ROOM 115-2 FOR ZHANE
--- NOTE | 2022-06-04 13:30 | NUR ---
PT TRANSFERRED TO [facility] ACLS PROTOCOL. WARM HANDOFF GIVEN TO RN ASSIGNED.
--- NOTE | 2022-06-04 13:40 | NUR ---
ANIMATOR NOTE PATIENT BROUGHT FROM ER .LORA IS SLEEPING , ON 02 6L VIA N/C O2 SAT 98 % .PATIENT ADMITTED WITH DIAGNOSIS OF PNEUMONIA , UPON INITIAL EVALUATION NOTED BROWN DISCOLORATION OF THE SACRUM AREA , WOUND CONSULT ORDERED . PATIENT IS URINARU AND BOWEL INCONTINENT PER HX , HAD CVA, CYSTICERCOSIS AND SEIZURES.PATIENT IS ON TELE MONITOR , SR 68.BED IS AT LOWEST POSITION , SIDE RAILS ARE UP , CALL LIGHT WITHIN REACH , WILL CONTINUE TO MONITOR.
[2022-06-04 14:07] VITALS: BP 100/64
[2022-06-04 14:32] LABS: BAND % (MANUAL) 2 % (0.0-5.0); LYMPHOCYTES % (MANUAL) 9 % (16-48); MONOCYTES % (MANUAL) 6 % (0-11.0); NEUTROPHILS % (MANUAL) 83 (42-76)
--- NOTE | 2022-06-04 17:04 | NUR ---
PER DR. GONZALEZ PT. UNDER DR. HARVEY.ER/ADMITTING NOTIFIED.
--- NOTE | 2022-06-04 17:06 | NUR ---
DR. HARVEY PAGED AWAITS RESPONSE.
[2022-06-04 17:09] VITALS: BP 126/86
[2022-06-04] MEDS ORDERED: IV NS 0.9% 1,000 ML IV PRN (17:30)
[2022-06-04] MEDS ORDERED: ALBUTEROL HALF STRENGTH 1.25 MG/3 ML VIAL.NEB NEB PRN (17:30)
[2022-06-04] MEDS ORDERED: IPRATROPIUM NEB FS 0.5 MG/2.5 ML AMPUL.NEB NEB PRN (17:30)
[2022-06-04] MEDS ORDERED: VANCOMYCIN 1 GM in IV D5W 250 ML IV SCH (17:30)
[2022-06-04] MEDS ORDERED: MAGNESIUM HYDROXIDE 30 ML UDC PO PRN (18:30)
[2022-06-04] MEDS ORDERED: ONDANSETRON HCL/PF 4 MG/2 ML VIAL IV PRN (18:30)
--- NOTE | 2022-06-04 18:46 | NUR ---
RN CLOSING NOTE PATIENT IS SLEEPING , ON 02 6L VIA N/C O2 SAT 989% .PATIENT HAS IV ON R AND L AC 20 G , WITH NS RUNNING AT 50 ML/HR,WS UNABLE TO SWALLOW FOOD , ORDER RECEIVED TO START PATIENT ON NG TUBE IF NEEDED FOR MEDICATIONS TO ADMINISTERED.BED IS AT LOWEST POSITION , SIDE RAILS ARE UP , CALL LIGHT WITHIN REACH , WILL ENDORSE CARBON PAPER MACHINE OPERATOR NURSE TO FALLOW POC.
[2022-06-04] MEDS ORDERED: DOCUSATE SODIUM 100 MG CAPSULE PO PRN (19:00)
[2022-06-04] MEDS ORDERED: DOCUSATE SODIUM LIQ 100 MG/10 ML UDC NG SCH (19:00)
[2022-06-04] MEDS ORDERED: ACETAMINOPHEN 325 MG TABLET PO PRN (19:30)
[2022-06-04] MEDS ORDERED: LEVETIRACETAM (500MG) 1,000 MG in IV NS 0.9% 100 ML IV ONE ×2 (19:30→21:00)
[2022-06-04] MEDS ORDERED: LORAZEPAM INJ 2 MG/ML VIAL IV PRN (19:30)
--- NOTE | 2022-06-04 19:39 | NUR ---
rn note patient started to sizing, dr Burton notified , order for keppra 200 mg iv stat , once then 1000 mg in every 12 hr , received
--- NOTE | 2022-06-04 19:48 | NUR ---
RN NOTES: PATIENT CONSTANTLY SEIZING. ATIVAN 1ML GIVEN PER PRN ORDERED. WILL CONTINUE TO MONITOR
--- NOTE | 2022-06-04 19:58 | NUR ---
1957 Dr. Burton called with order to cancel the Keppra orders he gave, noted and carried out.
[2022-06-04 20:00] VITALS: BP 109/67
[2022-06-04] MEDS ORDERED: LEVETIRACETAM (500MG) 2,000 MG in IV NS 0.9% 100 ML IV ONE (20:00)
--- NOTE | 2022-06-04 20:00 | NUR ---
1999 Dr. Burton called again and asked for Dr. Huang shahid.
[2022-06-04] MEDS: PIPERACILLIN /TAZOBACTAM 2.25 G in IV D5W 50 ML IV SCH (20:15)
--- NOTE | 2022-06-04 20:17 | NUR ---
2017 Dr. Burton called again and he said he spoke with Dr. Encinas and to continue with Dr. Encinas order for Agustin. Noted and carried out.
[2022-06-04] MEDS ORDERED: PIPERACILLIN /TAZOBACTAM 3.375 G in IV D5W 50 ML IV SCH (21:00)
[2022-06-04] MEDS: POTASSIUM CL. PREMIX PERIPHER. 50 ML IV SCH ×2 (22:04→23:22)
--- NOTE | 2022-06-04 22:13 | NUR ---
RN NOTES: INSERTED NG TUBE WITH 14FR AND PT TOLERATED WELL. AUSCULTATE FOR POSITIVE PLACEMENT. DR. HARVEY CAME TO SEE THE PT. ORDER- STAT CHEST X-RAY FOR NG PLACEMENT AND BILATERAL SOFT HAND RESTRAINTS.
[2022-06-04] MEDS: OXCARBAZEPINE 150 MG TABLET PO SCH (22:33)
[2022-06-04] MEDS: ATORVASTATIN 10 MG TABLET PO SCH (22:35)
[2022-06-04] MEDS: LACOSAMIDE ORAL SOLN 50 MG/5 ML UDC PO SCH (22:35)
[2022-06-04] MEDS ORDERED: IV D5/ 0.9% NACL 1,000 ML IV PRN (23:00)
[2022-06-05] VITALS: BP 112/78
[2022-06-05] MEDS ORDERED: LEVETIRACETAM (500MG) 1,000 MG in IV NS 0.9% 100 ML IV SCH ×2
[2022-06-05 04:00] VITALS: BP 106/65
[2022-06-05] MEDS: PIPERACILLIN /TAZOBACTAM 2.25 G in IV D5W 50 ML IV SCH ×3 (04:17→19:56)
[2022-06-05 04:47] LABS: BASOPHILS % (AUTO) 0.3 % (0.0-2.0); EOSINOPHILS % (AUTO) 0.2 % (0.0-6.0); HEMATOCRIT 38 % (39-51); HEMOGLOBIN 12.1 g/dL (13.5-17.5); LYMPHOCYTES # (AUTO) 0.7 K/uL (0.8-4.8); LYMPHOCYTES % (AUTO) 5.1 % (20.0-44.0); MEAN CORPUSCULAR HGB CONC 32 g/dl (31.0-36.0); MEAN CORPUSCULAR VOLUME 95 fL (80-96); MONOCYTES # (AUTO) 1.2 K/uL (0.1-1.30); MONOCYTES % (AUTO) 9.2 % (2.0-12.0); NEUTROPHILS % (AUTO) 85.2 % (43.0-81.0); PLATELET COUNT (AUTO) 61 K/uL (150-450); RED BLOOD CELL COUNT(AUTO) 3.96 MIL/uL (4.5-6.0); WHITE BLOOD COUNT (AUTO) 12.9 K/uL (4.3-11.0)
[2022-06-05 04:53] LABS: IRON, SERUM 16 ug/dl (50-175); TOTAL IRON BINDING CAPACITY 169 ug/dl (250-450)
[2022-06-05 04:54] LABS: CALCIUM, SERUM 8.3 mg/dL (8.5-10.1); CREATININE 1.4 mg/dL (0.6-1.3); GLUCOSE 142 mg/dL (74-106); PHOSPHORUS 3.3 mg/dL (2.5-4.9); UREA NITROGEN, BLOOD 57 mg/dL (7-18)
[2022-06-05 05:31] LABS: CHLORIDE 125 mmol/L (98-107); POTASSIUM 3.5 mmol/L (3.5-5.1)
[2022-06-05 05:43] LABS: SODIUM SERUM 160 mmol/L (136-145)
[2022-06-05 05:48] LABS: BAND % (MANUAL) 5 % (0.0-5.0); BASOPHILS % (MANUAL) 0 % (0.0-2.0); EOSINOPHILS % (MANUAL) 0 % (0-4); LYMPHOCYTES % (MANUAL) 9 % (16-48); MONOCYTES % (MANUAL) 7 % (0-11.0); NEUTROPHILS % (MANUAL) 79 (42-76)
[2022-06-05 06:06] LABS: CARBON DIOXIDE 29 mmol/L (21-32)
--- NOTE | 2022-06-05 06:45 | NUR ---
RN CLOSING NOTES: PT IN BED SLEEPING BUT AROUSABLE TO PAINFUL STIMULI. ON 4L/MIN VIA N/C AND PT TOLERATED WELL. O2 SAT 98%. IV ACCESS ON RT AND LT AC#18G INTACT AND PATENT. NO S/S OF INFILTRATIONS. D5NS RUNNING AT 50CC/HR. NO FACIAL GRIMACING NOTED. NO ACUTE DISTRESS. NG TUBE IN PLACE. ALL DUE MEDICATIONS GIVEN AND PT TOLERATED WELL. INSERTED CONDOM CATHETER. SOFT BILATERAL RESTRAINTS ON. RELEASED Q 2 HOURS TO CHECK CIRCULATION. ALL SAFETY MEASURES IN PLACE. ALL SIDE RAILS UP AND PADDED TO PREVENT INJURY. BED IN LOWEST POSITION AND LOCKED. PLACE CALL LIGHT WITH IN REACH. WILL ENDORSE TO MORNING SHIFT NURSE.
--- NOTE | 2022-06-05 07:20 | NUR ---
RN OPEN NOTES: PT IN BED SLEEPING BUT AROUSABLE TO PAINFUL STIMULI. ON 4L/MIN VIA N/C AND PT TOLERATED WELL. O2 SAT 98%. IV ACCESS ON RT AND LT AC#18G INTACT AND PATENT. NO S/S OF INFILTRATIONS. D5NS RUNNING AT 50CC/HR. NO FACIAL GRIMACING NOTED. NO ACUTE DISTRESS. NG TUBE IN PLACE. ATTACHED CONDOM CATHETER. SOFT BILATERAL RESTRAINTS ON. WILL RELEASE Q 2 HOURS TO CHECK CIRCULATION. ALL SAFETY MEASURES IN PLACE. ALL SIDE RAILS UP AND PADDED TO PREVENT INJURY. BED IN LOWEST POSITION AND LOCKED. PLACE CALL LIGHT WITH IN REACH. WILL CONTINUE TO MONITOR
[2022-06-05] MEDS: PANTOPRAZOLE 40 MG TABLET.DR PO SCH (07:35)
[2022-06-05 08:00] VITALS: BP 149/77
[2022-06-05] MEDS: CITALOPRAM HYDROBROMIDE 10 MG TABLET PO SCH (08:39)
[2022-06-05] MEDS: LACOSAMIDE ORAL SOLN 50 MG/5 ML UDC PO SCH ×2 (08:39→20:57)
[2022-06-05] MEDS: ZINC SULFATE 220 MG CAPSULE PO SCH (08:39)
[2022-06-05] MEDS: CHOLECALCIFEROL 1,000 UNIT TABLET (VIT D3) PO SCH (08:39)
[2022-06-05] MEDS: ASCORBIC ACID 500 MG TABLET PO SCH (08:39)
[2022-06-05] MEDS: FOLIC ACID 1 MG TABLET PO SCH ×2 (08:39→16:50)
[2022-06-05] MEDS: AMLODIPINE BESYLATE 10 MG TABLET PO SCH (08:40)
[2022-06-05] MEDS: THIAMINE HCL 100 MG TABLET PO SCH ×2 (08:40→16:50)
[2022-06-05] MEDS: MULTIVITAMINS,THERAGRAN 1 UDTAB TABLET PO SCH (08:40)
[2022-06-05] MEDS: CYANOCOBALAMIN 500 MCG TABLET PO SCH (08:40)
[2022-06-05] MEDS: OXCARBAZEPINE 150 MG TABLET PO SCH ×2 (08:40→20:52)
[2022-06-05] MEDS ORDERED: CYCLOBENZAPRINE 10 MG TABLET PO SCH (09:00)
[2022-06-05] MEDS ORDERED: CYCLOBENZAPRINE 10 MG TABLET PO PRN (09:00)
[2022-06-05] MEDS ORDERED: DIVALPROEX SODIUM 500 MG TABLET.DR PO SCH (09:00)
[2022-06-05] MEDS: ASPIRIN 81 MG TAB.CHEW PO SCH (09:01)
[2022-06-05] MEDS ORDERED: Z GUARD REMEDY 4 OZ OINT TP PRN (09:30)
--- NOTE | 2022-06-05 09:34 | NUR ---
WOUND CARE CONSULT: PT PRESENTS WITH SACRAL DEEP TISSUE INJURY WHICH IS IN EVOLUTION, PRESENT ON ADMISSION. RECOMMENDATIONS MADE FOR SKIN PROTECTION AND WOUND CARE. DISCUSSED WITH NURSING STAFF. PT TO BE PLACED ON EPWORTH ISOFLEX LOW AIRLOSS BED. IN AGREEMENT WITH PLAN OF CARE. Addendum: 06/05/22 at 0935 by JONO SANCHEZ WNDNU Amended: Links added.
[2022-06-05] MEDS: Z GUARD REMEDY 4 OZ OINT TP SCH (09:45)
[2022-06-05 12:16] VITALS: BP 124/76
[2022-06-05] MEDS: VANCOMYCIN 500 MG in IV D5W 100 ML IV SCH (14:36)
[2022-06-05] MEDS ORDERED: VANCOMYCIN 1 GM in IV D5W 250 ML IV SCH (15:00)
[2022-06-05 16:00] VITALS: BP 158/72
[2022-06-05] MEDS: JEVITY 1.2 CAL 1,000 ML BOTTLE NG SCH (17:59)
[2022-06-05] MEDS ORDERED: IV D5/0.45 NACL 1,000 ML IV PRN (18:00)
[2022-06-05] MEDS ORDERED: DIVALPROEX SODIUM 125 MG TABLET.DR PO SCH (18:00)
--- NOTE | 2022-06-05 18:37 | NUR ---
RN CLOSING NOTES: PT IN BED SLEEPING BUT AROUSABLE TO PAINFUL STIMULI. ON 4L/MIN VIA N/C AND PT TOLERATED WELL. O2 SAT 98%. IV ACCESS ON RT AND LT AC#18G INTACT AND PATENT. NO S/S OF INFILTRATIONS. D5 1/2 NS RUNNING AT 50CC/HR. NO FACIAL GRIMACING NOTED. NO ACUTE DISTRESS. NG TUBE IN PLACE. ALL DUE MEDICATIONS GIVEN AND PT TOLERATED WELL. STARTED JEVERY 1.2 ELENA AT 30 ML/HR VIA NG TUBE. ATTACHED CONDOM CATHETER. SOFT BILATERAL RESTRAINTS ON. RELEASED Q 2 HOURS TO CHECK CIRCULATION. ALL SAFETY MEASURES IN PLACE. ALL SIDE RAILS UP AND PADDED TO PREVENT INJURY. BED IN LOWEST POSITION AND LOCKED. PLACE CALL LIGHT WITH IN REACH. WILL ENDORSE TO HIGHWAY MAINTENANCE TECHNICIAN NURSE.
--- NOTE | 2022-06-05 19:30 | NUR ---
TELE1 RN NOTES RECEIVED ON BED SLEEPING AROUSABLE TO TACTILE STIMULI.NO VERBAL,O2 IN USED AT 4L/NC,O2 SAT WNL.WITH NGT FEEDING OF JEVITY 1.2% AT 30ML/HR RATE,TOLERATED WELL,NO RESIDUAL VOLUME NOTED.SLOAN CATH INSERTED FR#16,PENILE AREA ALREADY EXCORIATED.HOSPITALIST SANJAY DID THE ORDER.NOTED SACRAL WOUND,CLEANSE WITH NS,APPLIED XEROFOAM AND COVERED WITH MEPILEX.ON BILATERAL SOFT WRIST RESTRAINTS,NO OCCLUSION ON BOTH HANDS NOTED.WILL REPOSITION PER PROTOCOL.WILL CONTINUE TO MONITOR STATUS.
[2022-06-05 20:00] VITALS: BP 101/65
[2022-06-05] MEDS: DIVALPROEX SODIUM 250 MG TABLET.DR PO SCH (20:52)
[2022-06-05] MEDS: LACTULOSE 10 G/15 ML UDC (PYXIS) NG SCH (20:52)
[2022-06-05] MEDS: ATORVASTATIN 10 MG TABLET PO SCH (21:03)
[2022-06-05] MEDS: SOD FERRIC GLUC 125 MG in IV NS 0.9% 100 ML IV SCH (21:07)
[2022-06-05] MEDS ORDERED: IV D5/0.45 NACL 1,000 ML IV SCH (22:30)
--- NOTE | 2022-06-05 23:00 | NUR ---
TELE1 RN NOTES MD VISIT SEEN BY DR JORGE GAMEZ,NO NEW ORDERS NOTED
[2022-06-06] VITALS: BP 115/70
[2022-06-06] MEDS: VANCOMYCIN 500 MG in IV D5W 100 ML IV SCH (02:40)
[2022-06-06] MEDS: PIPERACILLIN /TAZOBACTAM 2.25 G in IV D5W 50 ML IV SCH ×3 (03:55→19:39)
[2022-06-06 04:00] VITALS: BP 97/67
[2022-06-06 05:55] LABS: BASOPHILS % (AUTO) 0.2 % (0.0-2.0); EOSINOPHILS % (AUTO) 0.3 % (0.0-6.0); HEMATOCRIT 37 % (39-51); HEMOGLOBIN 11.7 g/dL (13.5-17.5); LYMPHOCYTES # (AUTO) 1.3 K/uL (0.8-4.8); LYMPHOCYTES % (AUTO) 10.6 % (20.0-44.0); MEAN CORPUSCULAR HGB CONC 32 g/dl (31.0-36.0); MEAN CORPUSCULAR VOLUME 97 fL (80-96); MONOCYTES # (AUTO) 0.8 K/uL (0.1-1.30); MONOCYTES % (AUTO) 6.1 % (2.0-12.0); NEUTROPHILS # (AUTO) 10.3 K/uL (1.8-8.9); NEUTROPHILS % (AUTO) 82.8 % (43.0-81.0); PLATELET COUNT (AUTO) 56 K/uL (150-450); RED BLOOD CELL COUNT(AUTO) 3.82 MIL/uL (4.5-6.0); WHITE BLOOD COUNT (AUTO) 12.4 K/uL (4.3-11.0)
[2022-06-06 06:01] LABS: CALCIUM, SERUM 8.4 mg/dL (8.5-10.1); CARBON DIOXIDE 27 mmol/L (21-32); CREATININE 0.9 mg/dL (0.6-1.3); GLUCOSE 133 mg/dL (74-106); POTASSIUM 3.7 mmol/L (3.5-5.1); UREA NITROGEN, BLOOD 33 mg/dL (7-18)
[2022-06-06 06:05] LABS: PHOSPHORUS 1.7 mg/dL (2.5-4.9)
--- NOTE | 2022-06-06 06:30 | NUR ---
TELE1 RN CLOSING NOTES REPORTED BY PRASHANTH FROM LAB,PATIENT CRITICAL RESULT NA-163,CHLORIDE 129,LACTIC ACID-12.0. MD JORGE GAMEZ MADE AWARE,WITH ORDER TO INCREASE RATE OF PRESENT IVF TO 75ML/HR RATE,NOTED AND CARRIED OUT.STILL OBTUNDED,NON VERBAL.GT FEEDING TOLERATED WELL,HOB ELEVATED,NO SEIZURE ACTIVITY NOTED.IN NO ACUTE DISTRESS.WILL ENDORSE TO DAY NURSE FOR ZHANE.
[2022-06-06 06:34] LABS: CHLORIDE 129 mmol/L (98-107); SODIUM SERUM 163 mmol/L (136-145)
[2022-06-06 06:56] LABS: SERUM AMMONIA 78 umol/L (11-32)
[2022-06-06 07:37] LABS: VALPROIC ACID 59 ug/mL (50-100)
--- NOTE | 2022-06-06 07:41 | NUR ---
RN NOTE PT RECEIVED IN BED, OBTUNDED. PT ON 4L O2 NC WITH NO SIGNS OF LABORED BREATHING AT THIS TIME. SLOAN CATH IN PLACE, BLOODY URINE, MD AWARE. BILATERAL SOFT WRIST RESTRAINS IN PLACE, SKIN WARM AND INTACT. NGT IN PLACE, NPO EXCEPT MEDS. RIGHT FA AND LEFT FA 20G IN PLACE, RUNNING D5 1/2NS AT 75 ML/HR. BED LOCKED AND IN LOWEST POSITION, CALL LIGHT WITHIN REACH, 3 SIDE RAILS UP.
[2022-06-06 08:00] VITALS: BP 91/58
[2022-06-06] MEDS: AMLODIPINE BESYLATE 10 MG TABLET PO SCH (09:00)
[2022-06-06] MEDS: ASCORBIC ACID 500 MG TABLET PO SCH (09:10)
[2022-06-06] MEDS: LACTULOSE 10 G/15 ML UDC (PYXIS) NG SCH ×2 (09:10→21:37)
[2022-06-06] MEDS: DIVALPROEX SODIUM 250 MG TABLET.DR PO SCH ×3 (09:11→21:37)
[2022-06-06] MEDS: ASPIRIN 81 MG TAB.CHEW PO SCH (09:15)
[2022-06-06] MEDS: PANTOPRAZOLE 40 MG TABLET.DR PO SCH (09:15)
[2022-06-06] MEDS: CYANOCOBALAMIN 500 MCG TABLET PO SCH (09:15)
[2022-06-06] MEDS: ZINC SULFATE 220 MG CAPSULE PO SCH (09:16)
[2022-06-06] MEDS: CITALOPRAM HYDROBROMIDE 10 MG TABLET PO SCH (09:16)
[2022-06-06] MEDS: MULTIVITAMINS,THERAGRAN 1 UDTAB TABLET PO SCH (09:16)
[2022-06-06] MEDS: OXCARBAZEPINE 150 MG TABLET PO SCH ×2 (09:18→21:37)
[2022-06-06] MEDS: THIAMINE HCL 100 MG TABLET PO SCH ×2 (09:18→16:09)
[2022-06-06] MEDS: CHOLECALCIFEROL 1,000 UNIT TABLET (VIT D3) PO SCH (09:18)
[2022-06-06] MEDS: LACOSAMIDE ORAL SOLN 50 MG/5 ML UDC PO SCH ×2 (09:20→21:37)
[2022-06-06] MEDS: Z GUARD REMEDY 4 OZ OINT TP SCH (09:21)
[2022-06-06] MEDS: FOLIC ACID 1 MG TABLET PO SCH ×2 (09:21→16:09)
[2022-06-06 09:32] LABS: BILIRUBIN,DIRECT 0.2 mg/dL (0.0-0.2); BILIRUBIN,TOTAL 0.3 mg/dL (0.2-1.0)
[2022-06-06] MEDS ORDERED: NEUTRA PHOS 1 POWD.PACKET GT ONE (10:00)
--- NOTE | 2022-06-06 10:00 | NUR ---
INFORMED DR. HARVEY REGARDING NA-163, AMMONIA -78, ORDERED INCREASED LACTULOSE TID. INCREASE D5 1/2 NS TO 75ML/HR.
--- NOTE | 2022-06-06 10:15 | NUR ---
WOUND CARE: RECEIVED ANOTHER WOUND CONSULT FOR SACRAL WOUND. SURGICAL TEAM ON CASE. SKIN PROTECTION DISCUSSED WITH NURSING STAFF. MD IN AGREEMENT WITH PLAN OF CARE.
[2022-06-06 12:00] VITALS: BP 95/60
[2022-06-06 12:01] LABS: BAND % (MANUAL) 23 % (0.0-5.0); LYMPHOCYTES % (MANUAL) 18 % (16-48); MONOCYTES % (MANUAL) 4 % (0-11.0); NEUTROPHILS % (MANUAL) 55 (42-76)
[2022-06-06] MEDS: LACTULOSE 10 G/15 ML UDC (PYXIS) GT SCH ×2 (12:35→16:09)
[2022-06-06] MEDS: IV D5/0.45 NACL 1,000 ML IV SCH (13:02)
[2022-06-06] MEDS: SOD FERRIC GLUC 125 MG in IV NS 0.9% 100 ML IV SCH (13:18)
[2022-06-06] MEDS: VANCOMYCIN HCL 0.75 GM in IV D5W 250 ML IV SCH (14:46)
[2022-06-06 16:00] VITALS: BP 92/59
--- NOTE | 2022-06-06 17:31 | NUR ---
SS consult requested. SW will follow up at a later time.
--- NOTE | 2022-06-06 18:40 | NUR ---
CLOSING NOTES: PT IN BED SLEEPING BUT AROUSABLE TO PAINFUL STIMULI. ON 4L/MIN VIA N/C AND PT TOLERATED WELL. O2 SAT 98%. IV ACCESS ON RT AND LT AC#18G INTACT AND PATENT. NO S/S OF INFILTRATIONS. D5 1/2 NS RUNNING AT 75CC/HR. NO ACUTE DISTRESS. ALL DUE MEDICATIONS GIVEN AND PT TOLERATED WELL. STARTED JEVERY 1.2 ELENA AT 30 ML/HR VIA NG TUBE. SOFT BILATERAL RESTRAINTS ON. ALL SAFETY MEASURES IN PLACE. ALL SIDE RAILS UP AND PADDED TO PREVENT INJURY. BED IN LOWEST POSITION AND LOCKED. PLACE CALL LIGHT WITH IN REACH.
--- NOTE | 2022-06-06 19:30 | NUR ---
RN OPENING NOTE RECEIVED PT IN BED, ASLEEP. CURRENTLY ON O2 THERAPY 4L/MIN VIA N/C, PT TOLERATING WELL SATING @ 94%. NO S/SX OF ACUTE RESPI DISTRESS NOTED AT THIS TIME. NO SOB, BREATHING IS EVEN AND UNLABORED. IV ACCESS ON RT AND LT AC#20G INTACT AND PATENT. NO S/SX OF INFILTRATION. D5NS RUNNING AT 50 CC/HR. NG TUBE IN PLACE INFUSING JEVITY 1.2 @ 30 CC/HR. BILATERAL SOFT WRIST RESTRAINTS ON. WILL RELEASE Q 2 HOURS TO CHECK CIRCULATION. FC IN PLACE, DRAINING BLOOD TINGED URINE BY GRAVITY. ALL SAFETY MEASURES IN PLACE: SIDE RAILS UP X 3 AND PADDED TO PREVENT INJURY. BED IN LOWEST POSITION AND LOCKED. BED ALARM ON. CALL LIGHT WITHIN REACH. WILL CONTINUE TO MONITOR PT.
[2022-06-06 20:00] VITALS: BP 104/62
--- NOTE | 2022-06-06 20:05 | NUR ---
RN NOTE NGT GOT PULLED OUT. RE INSERTED A NEW ONE. CXR ORDERED STAT FOR NGT PLACEMENT CHECK. WILL AWAIT RESULT.
--- NOTE | 2022-06-06 21:20 | NUR ---
RN NOTE XR CAME OUT WITH NGT IN PROPER PLACEMENT. DUE MEDS GIVEN ORDERED. RESUMED NGT FEEDING. WILL CONTINUE TO MONITOR AND REASSESS FOR ANY CHANGES.
[2022-06-06] MEDS: ATORVASTATIN 10 MG TABLET PO SCH (21:37)
[2022-06-07] VITALS: BP 118/69
[2022-06-07] MEDS: IV D5/0.45 NACL 1,000 ML IV SCH (01:40)
[2022-06-07] MEDS: VANCOMYCIN HCL 0.75 GM in IV D5W 250 ML IV SCH ×2 (02:45→15:32)
[2022-06-07] MEDS: PIPERACILLIN /TAZOBACTAM 2.25 G in IV D5W 50 ML IV SCH ×3 (03:45→19:42)
[2022-06-07 04:00] VITALS: BP 107/65
--- NOTE | 2022-06-07 06:17 | NUR ---
RN NOTE NO SIGNIFICANT CHANGE T/O THE NIGHT. PT TOLERATING NGT FEEDING WELL. ALL DUE MEDS GIVEN. NEEDS MET. TURNED AND REPOSITIONED. WILL ENDORSE TO AM SHIFT NURSE FOR ZHANE.
[2022-06-07 06:57] LABS: CALCIUM, SERUM 7.8 mg/dL (8.5-10.1); CREATININE 0.8 mg/dL (0.6-1.3); PHOSPHORUS 1.6 mg/dL (2.5-4.9); POTASSIUM 3.3 mmol/L (3.5-5.1)
[2022-06-07 08:00] VITALS: BP 131/81
[2022-06-07] MEDS: LACTULOSE 10 G/15 ML UDC (PYXIS) GT SCH ×3 (08:31→16:11)
[2022-06-07] MEDS: LACOSAMIDE ORAL SOLN 50 MG/5 ML UDC PO SCH ×2 (08:31→21:13)
[2022-06-07] MEDS: OXCARBAZEPINE 150 MG TABLET PO SCH ×2 (08:31→21:13)
[2022-06-07] MEDS: AMLODIPINE BESYLATE 10 MG TABLET PO SCH (08:31)
[2022-06-07] MEDS: FOLIC ACID 1 MG TABLET PO SCH ×2 (08:32→16:11)
[2022-06-07] MEDS: ASPIRIN 81 MG TAB.CHEW PO SCH (08:32)
[2022-06-07] MEDS: CITALOPRAM HYDROBROMIDE 10 MG TABLET PO SCH (08:32)
[2022-06-07] MEDS: PANTOPRAZOLE 40 MG TABLET.DR PO SCH (08:32)
[2022-06-07] MEDS: ASCORBIC ACID 500 MG TABLET PO SCH (08:32)
[2022-06-07] MEDS: CHOLECALCIFEROL 1,000 UNIT TABLET (VIT D3) PO SCH (08:32)
[2022-06-07] MEDS: ZINC SULFATE 220 MG CAPSULE PO SCH (08:32)
[2022-06-07] MEDS: THIAMINE HCL 100 MG TABLET PO SCH ×2 (08:32→16:11)
[2022-06-07] MEDS: CYANOCOBALAMIN 500 MCG TABLET PO SCH (08:32)
[2022-06-07] MEDS: MULTIVITAMINS,THERAGRAN 1 UDTAB TABLET PO SCH (08:32)
[2022-06-07] MEDS: Z GUARD REMEDY 4 OZ OINT TP SCH (08:33)
[2022-06-07] MEDS: DIVALPROEX SODIUM 250 MG TABLET.DR PO SCH (08:38)
[2022-06-07] MEDS: LEVETIRACETAM (250 MG) 250 MG TABLET PO SCH ×2 (11:06→21:13)
[2022-06-07 12:00] VITALS: BP 121/69
[2022-06-07] MEDS: POTASSIUM CL. PREMIX PERIPHER. 50 ML IV SCH ×6 (12:29→18:00)
[2022-06-07] MEDS ORDERED: POTASSIUM CHLORIDE 20 MEQ POWDER PACKET NG SCH (12:30)
[2022-06-07 12:39] LABS: BASOPHILS % (AUTO) 0.1 % (0.0-2.0); EOSINOPHILS % (AUTO) 0.7 % (0.0-6.0); HEMATOCRIT 33 % (39-51); HEMOGLOBIN 10.4 g/dL (13.5-17.5); LYMPHOCYTES # (AUTO) 0.8 K/uL (0.8-4.8); MEAN CORPUSCULAR HGB CONC 32 g/dl (31.0-36.0); MEAN CORPUSCULAR VOLUME 97 fL (80-96); MONOCYTES # (AUTO) 0.6 K/uL (0.1-1.30); MONOCYTES % (AUTO) 8.4 % (2.0-12.0); NEUTROPHILS # (AUTO) 5.3 K/uL (1.8-8.9); NEUTROPHILS % (AUTO) 78.8 % (43.0-81.0); PLATELET COUNT (AUTO) 54 K/uL (150-450); RED BLOOD CELL COUNT(AUTO) 3.38 MIL/uL (4.5-6.0); WHITE BLOOD COUNT (AUTO) 6.7 K/uL (4.3-11.0)
[2022-06-07 12:52] LABS: MAGNESIUM 2.5 mg/dL (1.8-2.4); PHOSPHORUS 1.7 mg/dL (2.5-4.9)
--- NOTE | 2022-06-07 13:00 | NUR ---
RN NOTE NO RESIDUAL NOTED. PER DIETARY RECOMMENDATION, TUBE FEEDING INCREASED TO 40ML/HR, GOAL OF 50ML/HR
[2022-06-07] MEDS: SOD FERRIC GLUC 125 MG in IV NS 0.9% 100 ML IV SCH (13:50)
[2022-06-07 16:00] VITALS: BP 129/75
[2022-06-07] MEDS ORDERED: NEUTRA PHOS 1 POWD.PACKET GT ONE (16:00)
[2022-06-07 16:04] LABS: BAND % (MANUAL) 3 % (0.0-5.0); EOSINOPHILS % (MANUAL) 1 % (0-4); LYMPHOCYTES % (MANUAL) 13 % (16-48); MONOCYTES % (MANUAL) 3 % (0-11.0); NEUTROPHILS % (MANUAL) 80 (42-76)
--- NOTE | 2022-06-07 17:00 | NUR ---
RN NOTE NO RESIDUAL NOTED, TUBE FEEDING INCREASED TO 50ML/HR
--- NOTE | 2022-06-07 19:26 | NUR ---
RN Opening Notes Received pt in bed, asleep, awakens to verbal stimuli. Obtunded. On NC 4LPM and tolerating well. No SOB noted. No s/sx of respiratory distress noted. Tele monitor detects sinus rhythm. IV access in LFA #20G and RFA #20G. IV is intact, patent, and flushing well. NG-tube in place running Jevity @ 50 ml/hr. Safety precautions in place: bed in lowest, locked position, siderails upX2, and brakes on. Table and call light within reach. All needs met at this time.
[2022-06-07 20:00] VITALS: BP 135/82
[2022-06-07] MEDS: ATORVASTATIN 10 MG TABLET PO SCH (21:13)
[2022-06-07] MEDS: ACETAMINOPHEN 650 MG/20.3 ML UDC NG PRN (21:18)
--- NOTE | 2022-06-07 21:18 | NUR ---
RN Notes Administered tylenol for fever of 100.2.
[2022-06-07] MEDS: VANCOMYCIN 1 GM in IV D5W 250 ML IV SCH (23:33)
[2022-06-08] VITALS (8 sets, daily range): BP systolic 117–151; BP diastolic 68–82
[2022-06-08] MEDS: PIPERACILLIN /TAZOBACTAM 2.25 G in IV D5W 50 ML IV SCH ×3 (04:07→20:41)
[2022-06-08] MEDS ORDERED: MAGNESIUM HYDROXIDE 30 ML UDC NG PRN (04:30)
[2022-06-08] MEDS ORDERED: CYCLOBENZAPRINE 10 MG TABLET NG PRN (04:30)
[2022-06-08] MEDS ORDERED: DOCUSATE SODIUM LIQ 100 MG/10 ML UDC NG PRN (05:00)
[2022-06-08] MEDS: JEVITY 1.2 CAL 1,000 ML BOTTLE NG SCH (06:41)
--- NOTE | 2022-06-08 06:53 | NUR ---
RN Notes Received call from lab. Anaerobic bottle of blood culture came back positive for gram positive cocci. Will endorse to oncoming shift.
--- NOTE | 2022-06-08 06:53 | NUR ---
RN Closing Notes Pt in bed, asleep, opens eyes to verbal stimuli. Obtunded. On NC 4LPM and tolerating well. No SOB noted. No s/sx of respiratory distress noted. Tele monitor detects sinus rhythm. IV access in LFA #20G. IV is intact, patent, and flushing well. NG-tube in place running Jevity @ 50 ml/hr. All orders carried out. All needs met. Pt kept clean and dry. Safety precautions in place: bed in lowest, locked position, siderails upX2, and brakes on. Table and call light within reach. Will endorse to oncoming shift for ZHANE.
[2022-06-08 07:04] LABS: BASOPHILS % (AUTO) 0.4 % (0.0-2.0); EOSINOPHILS % (AUTO) 1.3 % (0.0-6.0); HEMATOCRIT 33 % (39-51); HEMOGLOBIN 10.9 g/dL (13.5-17.5); LYMPHOCYTES # (AUTO) 0.6 K/uL (0.8-4.8); MEAN CORPUSCULAR HGB CONC 34 g/dl (31.0-36.0); MEAN CORPUSCULAR VOLUME 94 fL (80-96); MONOCYTES # (AUTO) 0.7 K/uL (0.1-1.30); MONOCYTES % (AUTO) 13.1 % (2.0-12.0); NEUTROPHILS # (AUTO) 4.2 K/uL (1.8-8.9); NEUTROPHILS % (AUTO) 74.2 % (43.0-81.0); PLATELET COUNT (AUTO) 59 K/uL (150-450); RED BLOOD CELL COUNT(AUTO) 3.45 MIL/uL (4.5-6.0); WHITE BLOOD COUNT (AUTO) 5.7 K/uL (4.3-11.0)
[2022-06-08 07:17] LABS: CALCIUM, SERUM 7.9 mg/dL (8.5-10.1); CREATININE 0.8 mg/dL (0.6-1.3); MAGNESIUM 2.4 mg/dL (1.8-2.4); PHOSPHORUS 1.8 mg/dL (2.5-4.9); POTASSIUM 3.2 mmol/L (3.5-5.1)
--- NOTE | 2022-06-08 07:46 | NUR ---
television picture tube rebuilder note Pt in bed, asleep, opens eyes to tactily stimuli Obtunded. On NC 4LPM and tolerating well. No SOB noted. No s/s of respiratory distress noted. Tele monitor detects sinus rhythm hr 93. IV access in LFA #20G. IV is intact, patent, and flushing well. NG-tube in place running Jevity @ 50 ml/hr. placement checked by auscultation of air All needs met. Pt kept clean and dry. Safety precautions in place ,with brasher cath to gravity with yellow color urine bed in lowest, locked position, side rails upX2, and brakes on. call light within reach
--- NOTE | 2022-06-08 08:00 | NUR ---
FACILITY PLANNER NOTE PER DR KENNEY OK TO PLACE MID LINE,UNABLE TO INSERT NEW HL PATIENT IS HARD STICK
[2022-06-08] MEDS: AMLODIPINE BESYLATE 10 MG TABLET NG SCH (09:00)
[2022-06-08] MEDS: FOLIC ACID 1 MG TABLET NG SCH ×2 (09:00→16:06)
[2022-06-08] MEDS: LACTULOSE 10 G/15 ML UDC (PYXIS) NG SCH ×3 (09:00→16:07)
--- NOTE | 2022-06-08 09:00 | NUR ---
STEAM HAND NOTE DR HUFF NEUROLOGIST AT AT BEDSIDE ,UPDATED PATIENT CONDITION STATED HE LOOK A LITTLE BETTER PATIENT RESPONSE TO TACITLY STIMULI BY OPENING BOTH EYES WILL F\U
[2022-06-08] MEDS: PANTOPRAZOLE 40 MG/PACK PACK NG SCH (09:01)
[2022-06-08] MEDS: LEVETIRACETAM SOL (5 ML) 100 MG/ML UDC NG SCH ×2 (09:01→21:04)
[2022-06-08] MEDS: ASPIRIN 81 MG TAB.CHEW NG SCH (09:01)
[2022-06-08] MEDS: ASCORBIC ACID 500 MG TABLET NG SCH (09:02)
[2022-06-08] MEDS: CITALOPRAM HYDROBROMIDE 10 MG TABLET NG SCH (09:02)
[2022-06-08] MEDS: CHOLECALCIFEROL 1,000 UNIT TABLET (VIT D3) NG SCH (09:02)
[2022-06-08] MEDS: Z GUARD REMEDY 4 OZ OINT TP SCH (09:03)
[2022-06-08] MEDS: OXCARBAZEPINE 150 MG TABLET NG SCH ×2 (09:16→21:04)
[2022-06-08] MEDS: CYANOCOBALAMIN 500 MCG TABLET NG SCH (09:16)
[2022-06-08] MEDS: ZINC SULFATE 220 MG CAPSULE NG SCH (09:17)
[2022-06-08] MEDS: LACOSAMIDE ORAL SOLN 50 MG/5 ML UDC NG SCH ×2 (09:17→21:04)
[2022-06-08] MEDS: THIAMINE HCL 100 MG TABLET NG SCH ×2 (09:17→16:07)
[2022-06-08] MEDS: MULTIVITAMINS,THERAGRAN 1 UDTAB TABLET NG SCH (09:17)
[2022-06-08 09:21] LABS: EOSINOPHILS % (MANUAL) 3 % (0-4); LYMPHOCYTES % (MANUAL) 15 % (16-48); MONOCYTES % (MANUAL) 6 % (0-11.0); NEUTROPHILS % (MANUAL) 76 (42-76)
[2022-06-08] MEDS ORDERED: NEUTRA PHOS 1 POWD.PACKET PO ONE ×2 (09:30→13:00)
[2022-06-08] MEDS: ACETAMINOPHEN 650 MG/20.3 ML UDC NG PRN (10:22)
--- NOTE | 2022-06-08 10:26 | NUR ---
BELT SEWER NOTE NOTED PATIENT NOW MORE AWAKE AND MOVING AROUND WITH FACIAL GRIMACE ,TYLENOL VIA N GTUBE GIVEN ORDERED
--- NOTE | 2022-06-08 11:13 | NUR ---
PAROLE OR PROBATION OFFICER NOTE SEEN BY DR HARVEY NOTIFIED THAT SCROTUM SWOLLEN AND BLUISH DISCOLORATION ,AWARE THAT FROM PENIS SCANT AMT OF BLOOD NOTED ,ALSO NOTIFIED THAT BOTH ARMS IS SWOLLEN, OK TO PACE DVT PUMPS BOTH LEGS, AWARE ,THAT K 3.2 ORDER IVF NS AT 75 ML PER HOUR WILL F\U
[2022-06-08] MEDS: POTASSIUM CL. PREMIX PERIPHER. 50 ML IV SCH ×5 (11:27→15:52)
[2022-06-08] MEDS ORDERED: FUROSEMIDE 20 MG/2 ML VIAL IV ONE (11:30)
[2022-06-08] MEDS ORDERED: POTASSIUM PHOSPHATE MM 7.5 MMOL in IV NS 0.9% 100 ML IV SCH (11:30)
[2022-06-08] MEDS ORDERED: IV NS 0.9% 1,000 ML IV PRN (11:30)
[2022-06-08] MEDS: VANCOMYCIN 1 GM in IV D5W 250 ML IV SCH ×2 (11:41→23:52)
[2022-06-08] MEDS: SOD FERRIC GLUC 125 MG in IV NS 0.9% 100 ML IV SCH (14:31)
--- NOTE | 2022-06-08 14:44 | NUR ---
CLIENT CARE COORDINATOR NOTE CLARIFIED IVF WITH DR PEREZ OK TO START D51\2 NS WILL F\U
[2022-06-08] MEDS: IV D5/0.45 NACL 1,000 ML IV PRN (15:28)
--- NOTE | 2022-06-08 17:00 | NUR ---
teletray operator note dr atkins manager finance at bedside , notified that per primary doctor started ivf at 45 ml per hour , also aware that cont free water 300 ml q4 hour vi n g tube , aware that na today 152 , also patient made bm x3 large , , keep clean dry ,all needs attended ,keep hob elevated at all time
--- NOTE | 2022-06-08 18:41 | NUR ---
BOOKING OFFICER NOTE PATIENT IN BED, NONVERBAL, OBTUNDED, REPOSE TO TACITLY STIMULI ,OCCASIONALLY OPEN HIS EYES, , ON TELE MONITOR SR HR 93 AT THIS TIME, ON 4LNC, NO SOB NOTED AT THIS TIME,WITH SLOAN CATH TO GRAVITY WITH YELLOW COLOR URINE, RT UPPER ARM MID LINE IN PLACE ,ON IVF ORDERED , RT FA HL INTACT AND FLUSHED WELL, HAS NG TUBE FEEDING , PLACEMENT VERIFIED AND CONFIRMED BY AUSCULTATION OF AIR,KEEP HOB ELEVATED, DVT PUMPS BOTH LEGS IN PLACED, BILATERAL SOFT RESTRAIN STILL INTACT UNABLE TO REMOVE YET, PATIENT AT RISK TO REMOVE ALL LINE,S BOTH ARMS KEEP ELEVATED TO PREVENT FURTHER EDEMA. BED IN LOWEST AND LOCKED POSITION, SAFETY MEASURE IMPLEMENTED, WILL CONT TO MONITOR
--- NOTE | 2022-06-08 19:30 | NUR ---
ACID OPERATOR OPENING NOTE RECEIVED PATIENT IN BED, NONVERBAL, OBTUNDED, REPOSE TO TACITLY STIMULI ,OCCASIONALLY OPEN HIS EYES, , ON TELE MONITOR SR HR 93 AT THIS TIME, ON 4LNC, NO SOB NOTED AT THIS TIME, WITH SLOAN CATH TO GRAVITY WITH YELLOW COLOR URINE, LEFT UPPER ARM MID LINE IN PLACE ,ON IVF ORDERED , LFA HL INTACT AND FLUSHED WELL, HAS NG TUBE FEEDING , PLACEMENT VERIFIED AND CONFIRMED BY AUSCULTATION OF AIR, KEEP HOB ELEVATED, DVT PUMPS BOTH LEGS IN PLACED, BILATERAL SOFT RESTRAIN STILL INTACT UNABLE TO REMOVE YET, PATIENT AT RISK TO REMOVE LINES BED IN LOWEST AND LOCKED POSITION, SAFETY MEASURE IMPLEMENTED, WILL CONT TO MONITOR THROUGHOUT THE SHIFT.
[2022-06-08] MEDS: ATORVASTATIN 10 MG TABLET NG SCH (21:04)
[2022-06-09] VITALS (9 sets, daily range): BP systolic 104–128; BP diastolic 53–98
[2022-06-09] MEDS: PIPERACILLIN /TAZOBACTAM 2.25 G in IV D5W 50 ML IV SCH ×3 (04:59→20:29)
[2022-06-09 05:52] LABS: BASOPHILS % (AUTO) 0.3 % (0.0-2.0); EOSINOPHILS % (AUTO) 1.7 % (0.0-6.0); HEMATOCRIT 30 % (39-51); HEMOGLOBIN 9.8 g/dL (13.5-17.5); LYMPHOCYTES # (AUTO) 0.6 K/uL (0.8-4.8); MEAN CORPUSCULAR HGB CONC 33 g/dl (31.0-36.0); MEAN CORPUSCULAR VOLUME 94 fL (80-96); MONOCYTES % (AUTO) 16.8 % (2.0-12.0); NEUTROPHILS # (AUTO) 4.3 K/uL (1.8-8.9); NEUTROPHILS % (AUTO) 71.2 % (43.0-81.0); PLATELET COUNT (AUTO) 69 K/uL (150-450); RED BLOOD CELL COUNT(AUTO) 3.18 MIL/uL (4.5-6.0); WHITE BLOOD COUNT (AUTO) 6.1 K/uL (4.3-11.0)
[2022-06-09 06:02] LABS: SERUM AMMONIA 28 umol/L (11-32)
[2022-06-09 06:10] LABS: CALCIUM, SERUM 7.4 mg/dL (8.5-10.1); CARBON DIOXIDE 32 mmol/L (21-32); CHLORIDE 112 mmol/L (98-107); CREATININE 0.7 mg/dL (0.6-1.3); GLUCOSE 137 mg/dL (74-106); PHOSPHORUS 1.3 mg/dL (2.5-4.9); POTASSIUM 3.3 mmol/L (3.5-5.1); SODIUM SERUM 147 mmol/L (136-145); UREA NITROGEN, BLOOD 21 mg/dL (7-18)
--- NOTE | 2022-06-09 06:52 | NUR ---
SPORTS ANNOUNCER CLOSING NOTE PATIENT REMAINS IN BED, NONVERBAL, OBTUNDED, OCCASIONALLY OPEN HIS EYES, , ON TELE MONITOR SR-ST WITH HR 103 AT THIS TIME, ON 4LNC, NO SOB NOTED AT THIS TIME, WITH LSOAN CATH TO GRAVITY WITH YELLOW COLOR URINE, LEFT UPPER ARM MID LINE IN PLACE ,ON IVF ORDERED , LFA HL INTACT AND FLUSHED WELL, HAS NG TUBE FEEDING RUNNING JEVITY AT 50 ML/HR, KEEP HOB ELEVATED, DVT PUMPS BOTH LEGS IN PLACED, BILATERAL SOFT RESTRAIN STILL CIRCULATION CHECKED Q2H, ALL DUE MEDS GIVEN, KEPT DRY AND CLEAN, BED IN LOWEST AND LOCKED POSITION, SAFETY MEASURE IMPLEMENTED, WILL ENDORSE TO AM SHIFT NURSE FOR CONTINUITY OF CARE.
--- NOTE | 2022-06-09 07:25 | NUR ---
WEBSPHERE ARCHITECT OPENING NOTES Received pt awake in bed. Non verbal and unable to follow command. No signs of pain or discomfort at this time. Pt is currently on 4L NC and tolerating it well. IV access on MEG midline and LFA 20G patent and intact. NGT is patent and intact with feeding running on prescribed settings. HOB elevated to 30-45 degrees. Siderails up at all times x2. Will continue to monitor.
[2022-06-09] MEDS: PANTOPRAZOLE 40 MG/PACK PACK NG SCH (08:14)
[2022-06-09 08:59] LABS: BAND % (MANUAL) 14 % (0.0-5.0); LYMPHOCYTES % (MANUAL) 16 % (16-48); METAMYELOCYTES % 1 % (0-0); MONOCYTES % (MANUAL) 12 % (0-11.0); MYELOCYTES % 1 % (0-0); NEUTROPHILS % (MANUAL) 56 (42-76)
[2022-06-09] MEDS: OXCARBAZEPINE 150 MG TABLET NG SCH ×2 (09:43→21:40)
[2022-06-09] MEDS: LEVETIRACETAM SOL (5 ML) 100 MG/ML UDC NG SCH ×2 (09:43→21:41)
[2022-06-09] MEDS: AMLODIPINE BESYLATE 10 MG TABLET NG SCH (09:43)
[2022-06-09] MEDS: FOLIC ACID 1 MG TABLET NG SCH ×2 (09:44→17:49)
[2022-06-09] MEDS: ZINC SULFATE 220 MG CAPSULE NG SCH (09:44)
[2022-06-09] MEDS: CITALOPRAM HYDROBROMIDE 10 MG TABLET NG SCH (09:44)
[2022-06-09] MEDS: LACOSAMIDE ORAL SOLN 50 MG/5 ML UDC NG SCH ×2 (09:44→21:41)
[2022-06-09] MEDS: ASPIRIN 81 MG TAB.CHEW NG SCH (09:44)
[2022-06-09] MEDS: ASCORBIC ACID 500 MG TABLET NG SCH (09:44)
[2022-06-09] MEDS: MULTIVITAMINS,THERAGRAN 1 UDTAB TABLET NG SCH (09:44)
[2022-06-09] MEDS: LACTULOSE 10 G/15 ML UDC (PYXIS) NG SCH ×3 (09:44→17:49)
[2022-06-09] MEDS: CYANOCOBALAMIN 500 MCG TABLET NG SCH (09:44)
[2022-06-09] MEDS: THIAMINE HCL 100 MG TABLET NG SCH ×2 (09:44→17:49)
[2022-06-09] MEDS: CHOLECALCIFEROL 1,000 UNIT TABLET (VIT D3) NG SCH (09:45)
[2022-06-09] MEDS: Z GUARD REMEDY 4 OZ OINT TP SCH (09:45)
[2022-06-09] MEDS ORDERED: ACETAMINOPHEN ES 500 MG TABLET ONE (11:24)
[2022-06-09] MEDS: VANCOMYCIN 1 GM in IV D5W 250 ML IV SCH ×2 (11:28→23:37)
[2022-06-09] MEDS ORDERED: POTASSIUM CHLORIDE 20 MEQ POWDER PACKET GT ONE (11:30)
[2022-06-09] MEDS: JEVITY 1.2 CAL 1,000 ML BOTTLE NG SCH (13:02)
--- NOTE | 2022-06-09 15:19 | NUR ---
POST ACUTE CARE REGISTERED NURSE NOTES Consulted Dr. Jacob about giving potassium IV when potassium was given through the NGT at 1130. DR. Jacob said it's ok.
[2022-06-09] MEDS: POTASSIUM CL. PREMIX PERIPHER. 50 ML IV SCH ×6 (15:29→23:06)
[2022-06-09] MEDS: POTASSIUM PHOSPHATE MM 7.5 MMOL in IV NS 0.9% 100 ML IV SCH ×2 (17:11→20:28)
--- NOTE | 2022-06-09 19:00 | NUR ---
FLYING II INSTRUCTOR CLOSING NOTES All due meds and tx given as ordered. Pt tolerated everything well. All needs attended to.
--- NOTE | 2022-06-09 19:15 | NUR ---
TEST DECK SUPERVISOR CLOSING NOTE RECEIVED PT IN BED, NONVERBAL, OBTUNDED. ON O2 4L VIA NC, TOLERATING WELL WITH NO S/S OF SOB OR RESPIRATORY DISTRESS. ON TELE MONITOR SR-ST WITH HR 101 AT THIS TIME. WITH SLOAN CATH TO GRAVITY WITH YELLOW COLOR URINE NOTED. IV ACCESS MEG MIDLINE PATENT AND INTACT RUNNING D5 1/2 NS @ 45 ML/HR; LFA #20G PATENT AND INTACT RUNNING KCL @ 50 ML/HR AT THIS TIME. NG TUBE FEEDING RUNNING JEVITY AT 50 ML/HR, HOB ELEVATED, DVT PUMPS BOTH LEGS IN PLACED, BILATERAL SOFT RESTRAINTS INTACT WITH CIRCULATION WNL. SAFETY PRECAUTIONS IN PLACE: BED IN LOWEST AND LOCKED POSITION, SEIZURE PRECATUIONS IN PLACE, BED ALARM ON. WILL CONTINUE TO MONITOR AND ASSIST. Addendum: 06/09/22 at 2046 by PABLITO KESSLER RN TEST DECK SUPERVISOR OPENING NOTE
[2022-06-09] MEDS: IV D5/0.45 NACL 1,000 ML IV PRN (19:27)
[2022-06-09] MEDS: ATORVASTATIN 10 MG TABLET NG SCH (21:40)
[2022-06-10] VITALS: BP 142/92
[2022-06-10] MEDS: PIPERACILLIN /TAZOBACTAM 2.25 G in IV D5W 50 ML IV SCH ×3 (03:37→20:33)
[2022-06-10 04:00] VITALS: BP 98/75
[2022-06-10 05:58] LABS: BASOPHILS % (AUTO) 0.2 % (0.0-2.0); CALCIUM, SERUM 7.6 mg/dL (8.5-10.1); CREATININE 0.7 mg/dL (0.6-1.3); EOSINOPHILS % (AUTO) 1.1 % (0.0-6.0); HEMATOCRIT 29 % (39-51); HEMOGLOBIN 9.6 g/dL (13.5-17.5); LYMPHOCYTES # (AUTO) 0.7 K/uL (0.8-4.8); LYMPHOCYTES % (AUTO) 8.6 % (20.0-44.0); MAGNESIUM 2.1 mg/dL (1.8-2.4); MEAN CORPUSCULAR HGB CONC 33 g/dl (31.0-36.0); MEAN CORPUSCULAR VOLUME 94 fL (80-96); MONOCYTES # (AUTO) 1.1 K/uL (0.1-1.30); MONOCYTES % (AUTO) 13.6 % (2.0-12.0); NEUTROPHILS # (AUTO) 6.2 K/uL (1.8-8.9); NEUTROPHILS % (AUTO) 76.5 % (43.0-81.0); PHOSPHORUS 1.9 mg/dL (2.5-4.9); PLATELET COUNT (AUTO) 77 K/uL (150-450); POTASSIUM 3.9 mmol/L (3.5-5.1); RED BLOOD CELL COUNT(AUTO) 3.11 MIL/uL (4.5-6.0); WHITE BLOOD COUNT (AUTO) 8.1 K/uL (4.3-11.0)
--- NOTE | 2022-06-10 07:15 | NUR ---
TUMBLER TENDER CLOSING NOTE PT IN BED, NONVERBAL, OBTUNDED. STABLE ON O2 4L VIA NC, TOLERATING WELL WITH NO S/S OF SOB OR RESPIRATORY DISTRESS. ON TELE MONITOR SR-ST WITH HR 107 AT THIS TIME. WITH SLOAN CATH TO GRAVITY WITH YELLOW COLOR URINE NOTED. IV ACCESS MEG MIDLINE PATENT AND INTACT RUNNING D5 1/2 NS @ 45 ML/HR; LFA #20G SL, PATENT AND INTACT. NG TUBE FEEDING RUNNING JEVITY AT 50 ML/HR AND FLUSHED PER ORDERS, HOB ELEVATED, DVT PUMPS BOTH LEGS IN PLACED, BILATERAL SOFT RESTRAINTS INTACT WITH CIRCULATION WNL. ALL CARE PROVIDED AND MEDS TOLERATED WELL. SAFETY PRECAUTIONS MAINTAINED: BED IN LOWEST AND LOCKED POSITION, SEIZURE PRECATUIONS IN PLACE, BED ALARM ON. WILL ENDORSE ZHANE TO DAY SHIFT NURSE.
--- NOTE | 2022-06-10 07:15 | NUR ---
BUILDING ARCHITECTURAL DESIGNER OPENING NOTES Received pt awake in bed. Non verbal and unable to follow command. No signs of pain or discomfort at this time. Pt is on 4L NC and tolerating it well. IV access on MEG midline running IVF D5 1/2 NS at 45 cc/hr and LFA 20G patent and intact. NGT is patent and intact with feeding running on prescribed settings. HOB elevated to 30-45 degrees. Siderails up at all times x2. Will continue current plan of care.
[2022-06-10 08:00] VITALS: BP 130/69
[2022-06-10] MEDS: LACTULOSE 10 G/15 ML UDC (PYXIS) NG SCH ×3 (08:48→16:08)
[2022-06-10] MEDS: LACOSAMIDE ORAL SOLN 50 MG/5 ML UDC NG SCH (08:48)
[2022-06-10] MEDS: LEVETIRACETAM SOL (5 ML) 100 MG/ML UDC NG SCH (08:48)
[2022-06-10] MEDS: ASPIRIN 81 MG TAB.CHEW NG SCH (08:49)
[2022-06-10] MEDS: ZINC SULFATE 220 MG CAPSULE NG SCH (08:49)
[2022-06-10] MEDS: CYANOCOBALAMIN 500 MCG TABLET NG SCH (08:49)
[2022-06-10] MEDS: CHOLECALCIFEROL 1,000 UNIT TABLET (VIT D3) NG SCH (08:49)
[2022-06-10] MEDS: THIAMINE HCL 100 MG TABLET NG SCH ×2 (08:49→16:08)
[2022-06-10] MEDS: CITALOPRAM HYDROBROMIDE 10 MG TABLET NG SCH (08:49)
[2022-06-10] MEDS: PANTOPRAZOLE 40 MG/PACK PACK NG SCH (08:49)
[2022-06-10] MEDS: FOLIC ACID 1 MG TABLET NG SCH ×2 (08:49→16:08)
[2022-06-10] MEDS: MULTIVITAMINS,THERAGRAN 1 UDTAB TABLET NG SCH (08:50)
[2022-06-10] MEDS: ASCORBIC ACID 500 MG TABLET NG SCH (08:50)
[2022-06-10] MEDS: OXCARBAZEPINE 150 MG TABLET NG SCH (08:50)
[2022-06-10] MEDS: AMLODIPINE BESYLATE 10 MG TABLET NG SCH (08:50)
[2022-06-10] MEDS: Z GUARD REMEDY 4 OZ OINT TP SCH (09:00)
[2022-06-10] MEDS: VANCOMYCIN 1 GM in IV D5W 250 ML IV SCH ×2 (11:16→22:49)
[2022-06-10 12:00] VITALS: BP 151/88
--- NOTE | 2022-06-10 12:53 | NUR ---
LEAD SHAREPOINT DEVELOPER NOTES New order from Dr. Jacob to d/c all seizure meds d/t pt was not having real seizures. New order to d/s IVF. Noted and carried out.
[2022-06-10 12:57] LABS: BAND % (MANUAL) 17 % (0.0-5.0); EOSINOPHILS % (MANUAL) 1 % (0-4); LYMPHOCYTES % (MANUAL) 14 % (16-48); MONOCYTES % (MANUAL) 5 % (0-11.0); NEUTROPHILS % (MANUAL) 63 (42-76)
[2022-06-10] MEDS: JEVITY 1.2 CAL 1,000 ML BOTTLE NG SCH (13:46)
[2022-06-10 16:00] VITALS: BP 118/78
[2022-06-10] MEDS ORDERED: Sodium Phosphate 15 MMOL in IV NS 0.9% 245 ML IV SCH (17:00)
--- NOTE | 2022-06-10 18:30 | NUR ---
RN SEXUAL ASSAULT CLOSING NOTES All due meds and tx given as ordered. Pt tolerated everything well. All needs attended to. Pt is on 4L NC and tolerating it well. IV access on MEG midline and LFA 20G patent and intact. NGT is patent and intact running jevity 60 cc/hr. HOB elevated to 30-45 degrees. Siderails up at all times. Call light within reach. Will endorse to oncoming nurse.
--- NOTE | 2022-06-10 19:50 | NUR ---
GEOLOGY INSTRUCTOR OPENING NOTE RECEIVED PATIENT IN BED; A/O X 0; NONVERBAL. ON O2 INHALATION @ 4 LPM VIA NASAL CANNULA; TOLERATING WELL. ON TELE MONITOR WITH READING OF SINUS RHYTHM HR-98 BPM AT THIS TIME. NO SOB NOTED AT THIS TIME, WITH SLOAN CATH IN PLACE DRAINING BY GRAVITY WITH YELLOW URINE OUTPUT. WITH IV ACCESS ON LEFT UPPER ARM MIDLINE 18g AND LEFT FOREARM 20g; PATENT, INTACT AND SALINE LOCKED. WITH NGT IN PLACE @ RIGHT NARE; INFUSING WITH JEVITY 1.2 @ 60 ML/HR. SAFETY PRECAUTIONS IMPLEMENTED: HEAD OF BED ELEVATED, CALL LIGHT AND TABLE WITHIN REACH, SIDE RAILS UP X 3, BED IN LOWEST LOCKED POSITION. WILL CONTINUE PLAN OF CARE.
[2022-06-10 20:00] VITALS: BP 122/97
[2022-06-10] MEDS: ATORVASTATIN 10 MG TABLET NG SCH (22:31)
[2022-06-11] VITALS: BP 142/68
[2022-06-11 04:00] VITALS: BP 142/70
[2022-06-11] MEDS: PIPERACILLIN /TAZOBACTAM 2.25 G in IV D5W 50 ML IV SCH ×3 (04:32→20:09)
[2022-06-11] MEDS: JEVITY 1.2 CAL 1,000 ML BOTTLE NG SCH (04:52)
--- NOTE | 2022-06-11 07:05 | NUR ---
ETHNIC STUDIES PROFESSOR CLOSING NOTE PATIENT IN BED; A/O X 0; NONVERBAL. ON O2 INHALATION @ 4 LPM VIA NASAL CANNULA; TOLERATING WELL. ON TELE MONITOR WITH READING OF SINUS RHYTHM HR-90 BPM AT THIS TIME. NO SOB NOTED AT THIS TIME, WITH SLOAN CATH IN PLACE DRAINING BY GRAVITY WITH YELLOW URINE OUTPUT. WITH IV ACCESS ON LEFT UPPER ARM MIDLINE 18g AND LEFT FOREARM 20g; PATENT, INTACT AND SALINE LOCKED. WITH NGT IN PLACE @ RIGHT NARE; INFUSING WITH JEVITY 1.2 @ 60 ML/HR. SAFETY PRECAUTIONS MAINTAINED: HEAD OF BED ELEVATED, CALL LIGHT AND TABLE WITHIN REACH, SIDE RAILS UP X 3, BED IN LOWEST LOCKED POSITION. ENDORSED TO MORNING SHIFT FOR ZHANE.
--- NOTE | 2022-06-11 07:30 | NUR ---
SUBSTANCE ABUSE THERAPIST OPENING NOTE RECEIVED PATIENT IN BED; A/O X 0; NONVERBAL. ON O2 @ 4 LPM VIA NASAL CANNULA; TOLERATING WELL. ON TELE MONITOR WITH READING OF SINUS RHYTHM HR-87 BPM AT THIS TIME. NO SOB NOTED AT THIS TIME, WITH SLOAN CATH IN PLACE DRAINING BY GRAVITY WITH YELLOW URINE OUTPUT. WITH IV ACCESS ON LEFT UPPER ARM MIDLINE 18g AND LEFT FOREARM 20g; PATENT, INTACT AND SALINE LOCKED. WITH NGT IN PLACE @ RIGHT NARE; INFUSING WITH JEVITY 1.2 @ 70 ML/HR. SAFETY PRECAUTIONS IMPLEMENTED: HEAD OF BED ELEVATED, CALL LIGHT AND TABLE WITHIN REACH, SIDE RAILS UP X 3, BED IN LOWEST LOCKED POSITION. WILL CONTINUE PLAN OF CARE.
[2022-06-11 08:00] VITALS: BP 152/70
[2022-06-11] MEDS: CITALOPRAM HYDROBROMIDE 10 MG TABLET NG SCH (08:52)
[2022-06-11] MEDS: CHOLECALCIFEROL 1,000 UNIT TABLET (VIT D3) NG SCH (08:52)
[2022-06-11] MEDS: FOLIC ACID 1 MG TABLET NG SCH ×2 (08:52→17:11)
[2022-06-11] MEDS: ASCORBIC ACID 500 MG TABLET NG SCH (08:52)
[2022-06-11] MEDS: ASPIRIN 81 MG TAB.CHEW NG SCH (08:52)
[2022-06-11] MEDS: THIAMINE HCL 100 MG TABLET NG SCH ×2 (08:52→17:11)
[2022-06-11] MEDS: AMLODIPINE BESYLATE 10 MG TABLET NG SCH (08:53)
[2022-06-11] MEDS: MULTIVITAMINS,THERAGRAN 1 UDTAB TABLET NG SCH (08:53)
[2022-06-11] MEDS: LACTULOSE 10 G/15 ML UDC (PYXIS) NG SCH ×3 (08:53→17:10)
[2022-06-11] MEDS: Z GUARD REMEDY 4 OZ OINT TP SCH (08:57)
[2022-06-11] MEDS: CYANOCOBALAMIN 500 MCG TABLET NG SCH (08:58)
[2022-06-11] MEDS: ZINC SULFATE 220 MG CAPSULE NG SCH (08:58)
[2022-06-11] MEDS: PANTOPRAZOLE 40 MG/PACK PACK NG SCH (08:58)
[2022-06-11] MEDS: VANCOMYCIN 1 GM in IV D5W 250 ML IV SCH ×2 (11:10→22:11)
[2022-06-11 12:41] VITALS: BP 128/72
[2022-06-11 16:12] VITALS: BP 136/72
--- NOTE | 2022-06-11 19:17 | NUR ---
TUFTING MACHINE FIXER CLOSING NOTE RECEIVED PATIENT IN BED; A/O X 0; NONVERBAL. ON O2 @ 4 LPM VIA NASAL CANNULA; TOLERATING WELL. ON TELE MONITOR WITH READING OF SINUS RHYTHM HR-81 BPM AT THIS TIME. NO SOB NOTED AT THIS TIME, WITH SLOAN CATH IN PLACE DRAINING BY GRAVITY WITH YELLOW URINE OUTPUT. WITH IV ACCESS ON LEFT UPPER ARM MIDLINE 18g AND LEFT FOREARM 20g; PATENT, INTACT AND SALINE LOCKED. WITH NGT IN PLACE @ RIGHT NARE; INFUSING WITH JEVITY 1.2 @ 70 ML/HR. SAFETY PRECAUTIONS IMPLEMENTED: HEAD OF BED ELEVATED, CALL LIGHT AND TABLE WITHIN REACH, SIDE RAILS UP X 3, BED IN LOWEST LOCKED POSITION. JUAN CLEANING VALIDATION CONSULTANT NURSE TO FALLOW POC.
--- NOTE | 2022-06-11 19:30 | NUR ---
SHIP SUPERINTENDENT OPENING NOTE RECEIVED PATIENT ON BED, WITH HOB ELEVATED, WITH EYES CLOSED. AFEBRILE AND NOT IN ANY FORM OF ACUTE DISTRESS. ON TELE MONITORING WITH CURRENT READING OF SR. ON O2 VIA NASAL CANNULA AT 4LPM. WITH INTACT NG TUBE WITH CURRENT FEEDING OF JEVITY 1.2 RUNNING WITH 60ML/HR. WITH IV ACCESS ON MEG MIDLINE-SL. SAFETY MEASURES IN PLACE. KEPT BED IN LOCKED AND IN LOW POSITION. SIDE RAILS UP X2. CALL LIGHT WITHIN EASY REACH.
[2022-06-11 20:00] VITALS: BP 139/75
[2022-06-11] MEDS: ATORVASTATIN 10 MG TABLET NG SCH (21:13)
[2022-06-12] VITALS: BP 134/76
[2022-06-12] MEDS: PIPERACILLIN /TAZOBACTAM 2.25 G in IV D5W 50 ML IV SCH ×3 (03:47→21:28)
[2022-06-12 04:00] VITALS: BP 120/68
--- NOTE | 2022-06-12 06:30 | NUR ---
TOY STUFFER CLOSING NOTE PATIENT ON BED, WITH HOB ELEVATED, ASLEEP BUT EASY TO AROUSE AND RESPONDS TO VERBAL AND TACTILE STIMULI. AFEBRILE AND NOT IN ANY FORM OF ACUTE DISTRESS. ON TELE MONITORING WITH CURRENT READING OF SR 82. ON O2 VIA NASAL CANNULA AT 4LPM. WITH INTACT NG TUBE WITH CURRENT FEEDING OF JEVITY 1.2 RUNNING AT 60ML/HR. WITH IV ACCESS ON MEG MIDLINE-SL. MEDICATED ORDERED. CONTINUOUS ON IV ATB, MONITORED FOR ANY ADVERSE REACTION. WITH INTACT SLOAN CATHETER, DRAINING WELL WITH YELLOW URINE OUTPUT, NO HEMATURIA OR SEDIMENTS NOTED. SAFETY MEASURES IN PLACE. KEPT BED IN LOCKED AND IN LOW POSITION. SIDE RAILS UP X2. CALL LIGHT WITHIN EASY REACH. ALL NURSING NEEDS ATTENDED. ENDORSED TO INCOMING SHIFT FOR CONTINUITY OF CARE.
[2022-06-12 07:15] LABS: BASOPHILS % (AUTO) 0.4 % (0.0-2.0); EOSINOPHILS % (AUTO) 2.5 % (0.0-6.0); HEMATOCRIT 26 % (39-51); HEMOGLOBIN 8.6 g/dL (13.5-17.5); LYMPHOCYTES # (AUTO) 0.9 K/uL (0.8-4.8); MEAN CORPUSCULAR HGB CONC 33 g/dl (31.0-36.0); MEAN CORPUSCULAR VOLUME 93 fL (80-96); MONOCYTES # (AUTO) 1.4 K/uL (0.1-1.30); MONOCYTES % (AUTO) 18.5 % (2.0-12.0); NEUTROPHILS # (AUTO) 5.1 K/uL (1.8-8.9); NEUTROPHILS % (AUTO) 66.6 % (43.0-81.0); PLATELET COUNT (AUTO) 229 K/uL (150-450); RED BLOOD CELL COUNT(AUTO) 2.77 MIL/uL (4.5-6.0); WHITE BLOOD COUNT (AUTO) 7.7 K/uL (4.3-11.0)
--- NOTE | 2022-06-12 07:22 | NUR ---
RN OPENING NOTE RECEIVED PATIENT ON BED, WITH HOB ELEVATED, ASLEEP. AFEBRILE AND NOT IN ANY FORM OF ACUTE DISTRESS. ON TELE MONITORING WITH CURRENT READING OF SR. ON O2 VIA NASAL CANNULA AT 4LPM. WITH INTACT NG TUBE WITH CURRENT FEEDING OF JEVITY 1.2 RUNNING WITH 60ML/HR. WITH IV ACCESS ON MEG MIDLINE-SL. SAFETY MEASURES IN PLACE. KEPT BED IN LOCKED AND IN LOW POSITION. SIDE RAILS UP X2. CALL LIGHT WITHIN EASY REACH. WILL MONITOR THROUGHOUT DAY
[2022-06-12 07:29] LABS: CALCIUM, SERUM 7.6 mg/dL (8.5-10.1); CARBON DIOXIDE 32 mmol/L (21-32); CHLORIDE 113 mmol/L (98-107); CREATININE 0.7 mg/dL (0.6-1.3); GLUCOSE 112 mg/dL (74-106); MAGNESIUM 2.1 mg/dL (1.8-2.4); PHOSPHORUS 1.8 mg/dL (2.5-4.9); SODIUM SERUM 148 mmol/L (136-145); UREA NITROGEN, BLOOD 15 mg/dL (7-18)
[2022-06-12 07:30] LABS: SERUM AMMONIA 12 umol/L (11-32)
[2022-06-12 08:00] VITALS: BP 145/85
[2022-06-12] MEDS: PANTOPRAZOLE 40 MG/PACK PACK NG SCH (08:34)
[2022-06-12] MEDS: ASCORBIC ACID 500 MG TABLET NG SCH (08:34)
[2022-06-12] MEDS: THIAMINE HCL 100 MG TABLET NG SCH (08:34)
[2022-06-12] MEDS: CHOLECALCIFEROL 1,000 UNIT TABLET (VIT D3) NG SCH (08:34)
[2022-06-12] MEDS: LACTULOSE 10 G/15 ML UDC (PYXIS) NG SCH ×2 (08:34→17:10)
[2022-06-12] MEDS: ZINC SULFATE 220 MG CAPSULE NG SCH (08:34)
[2022-06-12] MEDS: ASPIRIN 81 MG TAB.CHEW NG SCH (08:34)
[2022-06-12] MEDS: CYANOCOBALAMIN 500 MCG TABLET NG SCH (08:35)
[2022-06-12] MEDS: FOLIC ACID 1 MG TABLET NG SCH (08:35)
[2022-06-12] MEDS: MULTIVITAMINS,THERAGRAN 1 UDTAB TABLET NG SCH (08:35)
[2022-06-12] MEDS: AMLODIPINE BESYLATE 10 MG TABLET NG SCH (08:35)
[2022-06-12] MEDS: CITALOPRAM HYDROBROMIDE 10 MG TABLET NG SCH (08:35)
[2022-06-12] MEDS: Z GUARD REMEDY 4 OZ OINT TP SCH (08:36)
[2022-06-12] MEDS: VANCOMYCIN 1 GM in IV D5W 250 ML IV SCH ×2 (11:04→23:24)
[2022-06-12 12:00] VITALS: BP 129/72
--- NOTE | 2022-06-12 12:16 | NUR ---
telemetry registered nurse note oer dr rondon ok to do swallow eval
[2022-06-12] MEDS: POTASSIUM CL. PREMIX PERIPHER. 50 ML IV SCH ×5 (12:22→23:58)
--- NOTE | 2022-06-12 14:18 | NUR ---
RN NOTE LAB CALLED ASKING ABOUT SPUTUM CULTURE. ORDER WAS PLACED BUT THEY CANNOT FIND. TOLD TO ASK RT TO FOLLOW UP ON THE ORDER
[2022-06-12] MEDS ORDERED: POTASSIUM PHOSPHATE MM 7.5 MMOL in IV NS 0.9% 100 ML IV SCH (14:30)
[2022-06-12] MEDS ORDERED: THIAMINE HCL 100 MG TABLET NG SCH (15:00)
[2022-06-12] MEDS ORDERED: FOLIC ACID 1 MG TABLET NG SCH (15:00)
--- NOTE | 2022-06-12 15:40 | NUR ---
RN NOTE PHARMACY CALLED ABOUT POTASSIUM CHLORIDE. WILL STOP IV ONCE THE THIRD BAG IS COMPLETE THEN SWITCH TO POTASSIUM PHOSPHATE IVPB. ONCE 2 BAGS ARE COMPLETE, WILL RETURN TO POTASSIUM CHLORIDE IV
--- NOTE | 2022-06-12 15:46 | NUR ---
RN NOTE NEW ORDER FOR FOLIC ACID AND THIAMINE DAILY. WAS CHANGED FROM TWICE A DAY. ONE DOSE GIVEN ALREADY. PHARMACY UNABLE TO CHANGE SINCE IT WAS A DOCTORS ORDER. ASKED DR. HARVYE IF HE WANTS ANOTHER DOSE OR TO HOLD UNTIL FOLLOWING DAY. AWAITING RESPONSE
[2022-06-12 16:00] VITALS: BP 140/73
--- NOTE | 2022-06-12 16:00 | NUR ---
RN NOTE NEURO MANAGER METAL AT BEDSIDE
[2022-06-12] MEDS: POTASSIUM PHOSPHATE MM 7.5 MMOL in IV NS 0.9% 100 ML IV SCH ×2 (16:09→20:03)
[2022-06-12 16:16] LABS: EOSINOPHILS % (MANUAL) 4 % (0-4); LYMPHOCYTES % (MANUAL) 16 % (16-48); MONOCYTES % (MANUAL) 13 % (0-11.0); NEUTROPHILS % (MANUAL) 67 (42-76)
--- NOTE | 2022-06-12 19:23 | NUR ---
RN CLOSING NOTE PATIENT ON BED, WITH HOB ELEVATED, ASLEEP BUT EASY TO AROUSE AND RESPONDS TO VERBAL AND TACTILE STIMULI. AFEBRILE AND NOT IN ANY FORM OF ACUTE DISTRESS. ON TELE MONITORING WITH CURRENT READING OF SR. ON O2 VIA NASAL CANNULA AT 4LPM. WITH INTACT NG TUBE WITH CURRENT FEEDING OF JEVITY 1.2 RUNNING AT 60ML/HR. WITH IV ACCESS ON MEG MIDLINE-SL. MEDICATED ORDERED. CONTINUOUS ON IV ATB, MONITORED FOR ANY ADVERSE REACTION. WITH INTACT SLOAN CATHETER, DRAINING WELL WITH YELLOW URINE OUTPUT, NO HEMATURIA OR SEDIMENTS NOTED. SAFETY MEASURES IN PLACE. KEPT BED IN LOCKED AND IN LOW POSITION. SIDE RAILS UP X2. CALL LIGHT WITHIN EASY REACH. ALL NURSING NEEDS ATTENDED. ENDORSED TO INCOMING SHIFT FOR CONTINUITY OF CARE.
[2022-06-12 20:00] VITALS: BP 128/83
--- NOTE | 2022-06-12 20:00 | NUR ---
PICTURE ENLARGER OPENING NOTE RECEIVED PATIENT ON BED, WITH HOB ELEVATED, AWAKE A/0X1-2.V/S STABLE AFEBRILE AND NOT IN ANY FORM OF ACUTE DISTRESS. ON TELE MONITORING WITH CURRENT READING OF SR. ON O2 VIA NASAL CANNULA AT 4LPM. WITH INTACT NG TUBE WITH CURRENT FEEDING OF JEVITY 1.2 RUNNING WITH 60ML/HR. WITH IV ACCESS ON MEG MIDLINE-SL. AND LFA G#[address] KEPT BED IN LOCKED AND IN LOW POSITION. SIDE RAILS UP X2. CALL LIGHT WITHIN EASY REACH. WILL CONTINUE TO MONITOR .
[2022-06-12] MEDS: JEVITY 1.2 CAL 1,000 ML BOTTLE NG SCH (21:12)
[2022-06-12] MEDS: ATORVASTATIN 10 MG TABLET NG SCH (22:48)
[2022-06-13] VITALS: BP 125/81
[2022-06-13] MEDS: POTASSIUM CL. PREMIX PERIPHER. 50 ML IV SCH (01:02)
[2022-06-13 04:00] VITALS: BP 123/85
[2022-06-13] MEDS: PIPERACILLIN /TAZOBACTAM 2.25 G in IV D5W 50 ML IV SCH ×3 (04:20→21:07)
--- NOTE | 2022-06-13 05:52 | NUR ---
MANAGER [place] CLOSING NOTES PATIENT ON BED, WITH HOB ELEVATED, AFEBRILE AND NOT IN ANY FORM OF ACUTE DISTRESS. ON TELE MONITORING WITH CURRENT READING OF SR 89. ON O2 VIA NASAL CANNULA AT 4LPM. WITH INTACT NG TUBE WITH CURRENT FEEDING OF JEVITY 1.2 RUNNING AT 60ML/HR. WITH IV ACCESS ON MEG MIDLINE-SL. MEDICATED ORDERED. CONTINUOUS ON IV ATB, MONITORED FOR ANY ADVERSE REACTION. WITH INTACT SLOAN CATHETER, DRAINING WELL WITH YELLOW URINE OUTPUT, NO HEMATURIA OR SEDIMENTS NOTED. SAFETY MEASURES IN PLACE. KEPT BED IN LOCKED AND IN LOW POSITION. SIDE RAILS UP X2. CALL LIGHT WITHIN EASY REACH. ALL NURSING NEEDS ATTENDED. WILL ENDORSED TO INCOMING SHIFT FOR CONTINUITY OF CARE.
[2022-06-13 06:18] LABS: BASOPHILS % (AUTO) 0.4 % (0.0-2.0); EOSINOPHILS % (AUTO) 1.9 % (0.0-6.0); HEMATOCRIT 25 % (39-51); HEMOGLOBIN 8.5 g/dL (13.5-17.5); LYMPHOCYTES # (AUTO) 0.9 K/uL (0.8-4.8); LYMPHOCYTES % (AUTO) 10.3 % (20.0-44.0); MEAN CORPUSCULAR HGB CONC 34 g/dl (31.0-36.0); MEAN CORPUSCULAR VOLUME 93 fL (80-96); MONOCYTES # (AUTO) 1.5 K/uL (0.1-1.30); NEUTROPHILS # (AUTO) 6.3 K/uL (1.8-8.9); NEUTROPHILS % (AUTO) 70.4 % (43.0-81.0); PLATELET COUNT (AUTO) 280 K/uL (150-450)
[2022-06-13 06:46] LABS: CALCIUM, SERUM 7.8 mg/dL (8.5-10.1); CARBON DIOXIDE 32 mmol/L (21-32); CHLORIDE 109 mmol/L (98-107); CREATININE 0.7 mg/dL (0.6-1.3); GLUCOSE 129 mg/dL (74-106); PHOSPHORUS 1.8 mg/dL (2.5-4.9); POTASSIUM 3.7 mmol/L (3.5-5.1); SODIUM SERUM 145 mmol/L (136-145); UREA NITROGEN, BLOOD 13 mg/dL (7-18)
[2022-06-13 07:08] LABS: SERUM AMMONIA 20 umol/L (11-32)
[2022-06-13] MEDS: PANTOPRAZOLE 40 MG/PACK PACK NG SCH (07:40)
[2022-06-13 08:00] VITALS: BP 133/71
[2022-06-13] MEDS ORDERED: NEUTRA PHOS 1 POWD.PACKET PO ONE (09:30)
[2022-06-13] MEDS: LACTULOSE 10 G/15 ML UDC (PYXIS) NG SCH (09:40)
[2022-06-13] MEDS: ASPIRIN 81 MG TAB.CHEW NG SCH (09:42)
[2022-06-13] MEDS: CHOLECALCIFEROL 1,000 UNIT TABLET (VIT D3) NG SCH (09:42)
[2022-06-13] MEDS: ASCORBIC ACID 500 MG TABLET NG SCH (09:43)
[2022-06-13] MEDS: CYANOCOBALAMIN 500 MCG TABLET NG SCH (09:43)
[2022-06-13] MEDS: CITALOPRAM HYDROBROMIDE 10 MG TABLET NG SCH (09:43)
[2022-06-13] MEDS: MULTIVITAMINS,THERAGRAN 1 UDTAB TABLET NG SCH (09:43)
[2022-06-13] MEDS: AMLODIPINE BESYLATE 10 MG TABLET NG SCH (09:43)
[2022-06-13] MEDS: Z GUARD REMEDY 4 OZ OINT TP SCH (09:45)
[2022-06-13] MEDS: ZINC SULFATE 220 MG CAPSULE NG SCH (09:45)
--- NOTE | 2022-06-13 10:00 | NUR ---
RN NOTES: SEEN BY ST WHO SAID PT WAS ABLE TO FOLLOW COMMAND, NO SIGNS OF ASPIRATION WILL START TO EAT PUREE WITH NECTAR THICK LIQUID
[2022-06-13] MEDS: VANCOMYCIN 1 GM in IV D5W 250 ML IV SCH ×2 (11:10→23:18)
[2022-06-13 12:00] VITALS: BP 88/40
[2022-06-13 13:19] LABS: BAND % (MANUAL) 6 % (0.0-5.0); EOSINOPHILS % (MANUAL) 2 % (0-4); LYMPHOCYTES % (MANUAL) 6 % (16-48); MONOCYTES % (MANUAL) 12 % (0-11.0); NEUTROPHILS % (MANUAL) 74 (42-76)
--- NOTE | 2022-06-13 13:38 | NUR ---
SS consult: SS Consult requested for pt. who comes from [facility] with sacral wound. The pt. is 89-year-old male admitted to [facility] for SOB and altered mentation. SW met with pt. at bedside. Per EMMR, the pt. has Hx of HTN, GERD, high cholesterol, Hx of CVA, depression/anxiety DSDR, seizure DSDR, chronic pain, mild decubitus ulceration of sacrum. The pt. is alert & oriented x 1 and makes good eye contact. The pt. appears very tired, well-groomed. The pt. has euthymic mood & affect. Pt. denies SI/HI and denies hallucinations. SW got verbal consent from pt. to call his son, Ronal [phone]. AISLINN called Ronal who provided collateral information. Per Ronal the pt. resides at the [facility] [[address] [employer] [place] [id number]; [phone]] and would want him to return there once ready for Discharge. Per wound nurse report pt. has , SACRAL DEEP TISSUE INJURY WHICH IS IN EVOLUTION, PRESENT ON ADMISSION. Per Son and logistics administrator, the pt. has been in and out of the hospital and other facilities prior. AISLINN called the logistics administrator, Merle [phone] who stated that the pt. has [facility] [phone] who are caring for the pt.s wounds. DC Plan: Per sons request, plan is to discharge pt. back [facility] [facility] [place] [id number]; [phone][facility] See notes for details.
--- NOTE | 2022-06-13 15:06 | NUR ---
RN notes: called DR HARVEY PT PULLED OUT HIS NGT, WAS PLACED BY ST ON PUREE NECTAR THICK DIET AND HE ATE 40 % OF HIS LUNCH WITH ORDER TO DC NGT, PT DOES NOT NEED NGT ANYMORE, WILL MONITOR
[2022-06-13 16:00] VITALS: BP 88/40
[2022-06-13] MEDS ORDERED: PHARMACY TO CHANGE GT/NG MEDS TO PO XX PRN (17:00)
[2022-06-13] MEDS ORDERED: AMLODIPINE BESYLATE 10 MG TABLET PO SCH (17:07)
[2022-06-13] MEDS ORDERED: ASCORBIC ACID 500 MG TABLET PO SCH (17:07)
[2022-06-13] MEDS ORDERED: ASPIRIN 81 MG TAB.CHEW PO SCH (17:07)
[2022-06-13] MEDS ORDERED: CHOLECALCIFEROL 1,000 UNIT TABLET (VIT D3) PO SCH (17:08)
[2022-06-13] MEDS ORDERED: ATORVASTATIN 10 MG TABLET PO SCH (17:08)
[2022-06-13] MEDS ORDERED: CYANOCOBALAMIN 500 MCG TABLET PO SCH (17:09)
[2022-06-13] MEDS ORDERED: CITALOPRAM HYDROBROMIDE 10 MG TABLET PO SCH (17:09)
[2022-06-13] MEDS ORDERED: DOCUSATE SODIUM LIQ 100 MG/10 ML UDC PO PRN (17:10)
[2022-06-13] MEDS ORDERED: CYCLOBENZAPRINE 10 MG TABLET PO PRN (17:10)
[2022-06-13] MEDS ORDERED: FOLIC ACID 1 MG TABLET PO SCH (17:10)
[2022-06-13] MEDS ORDERED: MAGNESIUM HYDROXIDE 30 ML UDC PO PRN (17:11)
[2022-06-13] MEDS ORDERED: MULTIVITAMINS,THERAGRAN 1 UDTAB TABLET PO SCH (17:13)
[2022-06-13] MEDS ORDERED: PANTOPRAZOLE 40 MG/PACK PACK PO SCH (17:14)
[2022-06-13] MEDS ORDERED: THIAMINE HCL 100 MG TABLET PO SCH (17:14)
[2022-06-13] MEDS ORDERED: ZINC SULFATE 220 MG CAPSULE PO SCH (17:15)
[2022-06-13] MEDS ORDERED: Folic Acid PO (17:20)
[2022-06-13] MEDS ORDERED: Zinc Sulfate NG (17:20)
[2022-06-13] MEDS ORDERED: CHOL100040 PO (17:20)
[2022-06-13] MEDS ORDERED: ATOR10TA PO (17:20)
[2022-06-13] MEDS ORDERED: Z Guard Remedy TP (17:20)
[2022-06-13] MEDS ORDERED: IPRA0.2S9 NEB (17:20)
[2022-06-13] MEDS ORDERED: VANC1PLA9 IV (17:20)
[2022-06-13] MEDS ORDERED: DOCU50LI PO (17:20)
[2022-06-13] MEDS ORDERED: ALBU1.25 NEB (17:20)
[2022-06-13] MEDS ORDERED: MAGN400O6 PO (17:20)
[2022-06-13] MEDS ORDERED: CITA10TA17 PO (17:20)
[2022-06-13] MEDS ORDERED: VANC1VIA34 XX (17:20)
[2022-06-13] MEDS ORDERED: AMLO-213 PO (17:20)
[2022-06-13] MEDS ORDERED: ASCO500T21 PO (17:20)
[2022-06-13] MEDS ORDERED: LACT10SO58 PO (17:20)
[2022-06-13] MEDS ORDERED: PANT40SU2 PO (17:20)
[2022-06-13] MEDS ORDERED: Thiamine HCL NG (17:20)
[2022-06-13] MEDS ORDERED: MULT-24 NG (17:20)
[2022-06-13] MEDS ORDERED: CYAN500T64 PO (17:20)
[2022-06-13] MEDS ORDERED: PIPE3.379 IV (17:20)
[2022-06-13] MEDS ORDERED: ONDA4VIA23 PO (17:20)
[2022-06-13] MEDS ORDERED: ASPI-1169 PO (17:20)
[2022-06-13] MEDS ORDERED: ACETAMINOPHEN 325 MG TABLET PO PRN (17:30)
[2022-06-13] MEDS: POTASSIUM PHOSPHATE MM 7.5 MMOL in IV NS 0.9% 100 ML IV SCH ×2 (17:58→21:17)
--- NOTE | 2022-06-13 19:00 | NUR ---
RN CLOSING NOTE PATIENT ON BED, WITH HOB ELEVATED, ASLEEP BUT EASY TO AROUSE AND RESPONDS TO VERBAL AND TACTILE STIMULI. AFEBRILE AND NOT IN ANY FORM OF ACUTE DISTRESS. ON TELE MONITORING WITH CURRENT READING OF SR. ON O2 VIA NASAL CANNULA AT 4LPM. WITH INTACT NG TUBE WITH CURRENT FEEDING OF JEVITY 1.2 RUNNING AT 60ML/HR. WITH IV ACCESS ON MEG MIDLINE-SL. MEDICATED ORDERED. CONTINUOUS ON IV ATB, MONITORED FOR ANY ADVERSE REACTION. WITH INTACT SLOAN CATHETER, DRAINING WELL WITH YELLOW URINE OUTPUT, NO HEMATURIA OR SEDIMENTS NOTED. SAFETY MEASURES IN PLACE. KEPT BED IN LOCKED AND IN LOW POSITION. SIDE RAILS UP X2. CALL LIGHT WITHIN EASY REACH. ALL NEEDS ATTENDED. ENDORSED TO INCOMING SHIFT FOR CONTINUITY OF CARE.
--- NOTE | 2022-06-13 19:30 | NUR ---
RN NOTE RECEIVED PT IN BED, ALERT, ORIENTED TO SELF. ABLE TO FOLLOW SIMPLE COMMANDS, ABLE TO MAKE NEEDS KNOWN. ON O2 AT 4L VIA NC, WELL ROMY. NO SOB/NO ACUTE RESP DISTRESS NOTED. IV ACCESS ON MEG ML CLEAN, DRY AND INTACT, NO S/SX OF INFX. FC IN PLACED, PATENT AND SECURED DRAINING CLEAR YELLOW URINE. BILATERAL SOFT WRIST RESTRAINTS IN PLACED AND SECURED. SAFETY PRECAUTIONS IMPLEMENTED. WILL CONT POC.
[2022-06-13 20:00] VITALS: BP 128/77
[2022-06-14] VITALS: BP 129/74
[2022-06-14 04:00] VITALS: BP 121/70
[2022-06-14] MEDS: PIPERACILLIN /TAZOBACTAM 2.25 G in IV D5W 50 ML IV SCH ×2 (04:35→12:22)
--- NOTE | 2022-06-14 06:59 | NUR ---
RN NOTE PT REMAINS IN STABLE CONDITION. NO SIGNIFICANT CHANGES NOTED THROUGHOUT OUT THE SHIFT. ALL NEEDS ATTENDED. ALL DUE MEDICATIONS GIVEN ORDERED. TURN/REPOS Q2H/PRN. SAFETY PRECAUTIONS IMPLEMENTED AT ALL TIMES. WILL ENDORSE TO AM SHIFT.
--- NOTE | 2022-06-14 07:25 | NUR ---
TOOLROOM HELPER OPENING NOTES Received pt asleep in bed AOX1. No complaints of pain or discomfort at this time. Pt is currently on 4L NC and tolerating it well. IV access on LFA 18G and MEG midline patent and intact. HOB elevated to 30-45 degrees. Siderails up at all times. Call light within reach. Will continue to monitor.
[2022-06-14 07:29] LABS: BASOPHILS % (AUTO) 0.4 % (0.0-2.0); EOSINOPHILS % (AUTO) 1.8 % (0.0-6.0); HEMATOCRIT 25 % (39-51); HEMOGLOBIN 8.4 g/dL (13.5-17.5); LYMPHOCYTES # (AUTO) 1.1 K/uL (0.8-4.8); LYMPHOCYTES % (AUTO) 12.9 % (20.0-44.0); MEAN CORPUSCULAR HGB CONC 33 g/dl (31.0-36.0); MEAN CORPUSCULAR VOLUME 93 fL (80-96); MONOCYTES # (AUTO) 1.1 K/uL (0.1-1.30); MONOCYTES % (AUTO) 12.7 % (2.0-12.0); NEUTROPHILS # (AUTO) 6.3 K/uL (1.8-8.9); NEUTROPHILS % (AUTO) 72.2 % (43.0-81.0); PLATELET COUNT (AUTO) 315 K/uL (150-450); WHITE BLOOD COUNT (AUTO) 8.7 K/uL (4.3-11.0)
[2022-06-14 08:00] VITALS: BP 128/82
[2022-06-14 08:11] LABS: CALCIUM, SERUM 8.2 mg/dL (8.5-10.1); CREATININE 0.7 mg/dL (0.6-1.3); PHOSPHORUS 2.9 mg/dL (2.5-4.9); POTASSIUM 3.5 mmol/L (3.5-5.1)
[2022-06-14] MEDS: Z GUARD REMEDY 4 OZ OINT TP SCH (08:22)
[2022-06-14] MEDS ORDERED: LACTULOSE 10 G/15 ML UDC (PYXIS) PO SCH (09:00)
[2022-06-14] MEDS: VANCOMYCIN 1 GM in IV D5W 250 ML IV SCH (11:12)
[2022-06-14 12:11] VITALS: BP 127/76
--- NOTE | 2022-06-14 12:47 | NUR ---
JAVA DESIGNER NOTES New order from Dr. Jacob to d/c pt to [facility]. Pt is medically stable for discharge. Report given to QUAN Payne. supervisor product inspection time ETA 1500.
--- NOTE | 2022-06-14 12:55 | NUR ---
FORMING FIXER NOTES Pt requested that we inform his son Corey Pearce of his discharge. Corey called and informed.
--- NOTE | 2022-06-14 15:45 | NUR ---
TUBER OPERATOR NOTES [facility] came to fiber picker pt for discharge to [facility]. Report and packet given to EMT. IV line kept due to pt continuing IV atb at the facility. External monitor box taken out. Transferred from bed to [facility] safely.
[2022-06-14] MEDS ORDERED: ENSURE ENLIVE CHOC 237 ML CAN PO SCH (17:00)
== END 2022-06-14 15:46 | DRG 871 ==
LOC: ER 10:52 → TELE1 13:19
PROVIDERS: ADMIT Internal Medicine; ATTEND Internal Medicine
PROC: 05HA33Z Insertion of Infusion Device into Left Brachial Vein, Percutaneous Approach (ICD-10-PCS; principal; 2022-06-08)
DX: A41.2 Sepsis due to unspecified staphylococcus (principal); D61.89 Other specified aplastic anemias and other bone marrow failure syndromes; G93.41 Metabolic encephalopathy; J69.0 Pneumonitis due to inhalation of food and vomit; N17.0 Acute kidney failure with tubular necrosis; F03.93 Unspecified dementia, unspecified severity, with mood disturbance; F03.94 Unspecified dementia, unspecified severity, with anxiety; E87.0 Hyperosmolality and hypernatremia; E87.20 Acidosis, unspecified; E72.20 Disorder of urea cycle metabolism, unspecified; J98.11 Atelectasis; M62.82 Rhabdomyolysis; Z20.822 Contact with and (suspected) exposure to COVID-19; Z86.73 Personal history of transient ischemic attack (TIA), and cerebral infarction without residual deficits; F32.A Depression, unspecified; F41.9 Anxiety disorder, unspecified; G40.909 Epilepsy, unspecified, not intractable, without status epilepticus; Z86.19 Personal history of other infectious and parasitic diseases; F19.10 Other psychoactive substance abuse, uncomplicated; Z79.82 Long term (current) use of aspirin; Z79.899 Other long term (current) drug therapy; E78.00 Pure hypercholesterolemia, unspecified; I10 Essential (primary) hypertension; G89.29 Other chronic pain; K21.9 Gastro-esophageal reflux disease without esophagitis; D69.6 Thrombocytopenia, unspecified; T50.995A Adverse effect of other drugs, medicaments and biological substances, initial encounter; Y92.049 Unspecified place in boarding-house as the place of occurrence of the external cause; E78.5 Hyperlipidemia, unspecified; D50.9 Iron deficiency anemia, unspecified; E87.6 Hypokalemia; L89.156 Pressure-induced deep tissue damage of sacral region; E86.0 Dehydration
CPT/HCPCS: 36410; 36415; 71045-TC; 76770-TC; 80048-TC; 80076-TC; 80164-TC; 80202-TC; 81001; 82140-TC; 82247-TC; 82248-TC; 82962-TC; 83540-TC; 83605-TC; 83735-TC; 83880; 84100-TC; 84295-TC; 84484-TC; 85025-TC; 85730-TC; 87040-TC; 87081-TC; 87086-TC; 92526; 92611-TC; 94640-TC; A4349; A6403; A9563; C9803; G0378; J0456; J1940; J1953; J2060; J2543; J2916; J3370; J3480; J3490; J7030; J7042; J7050; J7060